=== PATIENT | female | born 1955 | race Caucasian/White ===

== ENCOUNTER → 2017-10-02 12:57 | Outpatient (CLI) | payer MEDICARE, MEDICAID, SELFPAY ==
--- NOTE | 2017-10-02 13:04 | US_ITS ---
US Arterial Ankle Brachial Ind Bilateral rest pain, bilateral claudication, hyperlipidemia and hypertension. Leg pain ORDERING PHYSICIAN: Alex Yeh MD PATIENT AGE: 62 years TECHNIQUE: Segmental pressures obtained of both right and left leg. These are compared to brachial blood pressure to yield index at each level sampled including summary JAIDEN. The data sheets from the procedure are available in PACS FINDINGS Rest study only performed today No prior studies available for comparison. Blood pressures reported are in millimeters mercury. RIGHT LEG JAIDEN = 1.0. Right TBI equals 0.8 Brachial BP: 152 Thigh BP: 172 Calf BP: 171 Ankle PT: 152 Ankle DP : 154 Digit =123 LEFT LEG JAIDEN = 1.1 Left TBI equals 0.8 Brachial BPD: 151 Thigh BP: 169 Calf BP: 172 Ankle PT:165 Ankle DP: 182 Digit = 121 Pulses and waveforms: Normal IMPRESSION: The ABIs as reported above are within normal limits. Waveforms and pulses are also unremarkable.
== END ==
PROVIDERS: Family Provider Emergency Medicine; PCP Emergency Medicine; Visit Provider Emergency Medicine
DX: R09.89 Other specified symptoms and signs involving the circulatory and respiratory systems (principal)
CPT/HCPCS: 93922

== ENCOUNTER 2017-10-22 16:27 | Emergency (ER) | payer MEDICARE, MEDICAID, SELFPAY ==
[2017-10-22 17:35] VITALS: BP 179/90; PULSE 76; RESP 18; TEMP 36.9; O2SAT 97; BMI 26.5
--- NOTE | 2017-10-22 18:16 | HMH.EDUTC ---
[facility] [place]ression: Influenza B, Muscle pain Disposition: Home, Self-Care Condition on Discharge: Good Instructions: DI for Influenza -- Adult Additional Instructions: * Too late to start tamiflu. Most effective when started within 48 hours of symptoms onset. * Lots of rest * Increase fluids, water, gatorade, powerade, pedialyte if infant/toddler/child * Monitor Temp. Tylenol every 4 hours as needed no more then 5 times a day or 4000mg in 24 hours and/or ibuprofen every 6 hours as needed no more then 3200mg in 24 hours (as long as your primary care doctor has told you that it is ok to take both) for fever/aches/pain. ER if fever no less than 101 despite tylenol and Ibuprofen * OTC cold/flu/sinus medication is ok but pick one. Do not take multiple different ones as they have similar ingredients and you can overdose on cold medication. * You (or your child) are contagious until no fever, aches, chills x 24 hours without medication for symptoms. Referrals: Alex Yeh MD [Primary Care Provider] - (Can see you in the office tomorrow. Tell them Dr. Yeh talked to you tonight and told you to come in. ) Time of Disposition: 20:48 Medical Decision Making Vital Signs: 10/22/17 17:35 Temperature 98.4 F Temperature Source Temporal Artery Scan Pulse Rate [Right Radial] 76 Respiratory Rate 18 Blood Pressure [Right Arm] 179/90 Blood Pressure Mean [Right Arm] 119 Blood Pressure Source [Right Arm] Automatic Cuff Blood Pressure Position [Right Arm] Sitting 02 Sat by Pulse Oximetry 97 Oxygen Delivery Method Room Air - Lab Data Lab results reviewed: Yes: I reviewed the patient's lab results. Lab Results 10/22/17 18:18: Influenza Type A Ag Negative, Influenza Type B Ag Positive A, Strep Scn Rapid Clinic Negative 10/22/17 18:35: WBC 2.6 L, RBC 4.17 L, Hgb 13.6, Hct 41.6, MCV 99.7 H, MCH 32.7 H, MCHC 32.8, RDW 15.9, Plt Count 146, MPV 8.3, Neut % (Auto) 52.5, Lymph % (Auto) 33.9, [place] % (Auto) 11.0 H, Eos % (Auto) 2.0, Baso % (Auto) 0.6, Neut # (Auto) 1.4 L, Lymph # (Auto) 0.9, [place] # (Auto) 0.3, Eos # (Auto) 0.1, Baso # (Auto) 0.0 10/22/17 18:35: Sodium 140, Potassium 4.2, Chloride 105, Carbon Dioxide 31, Anion Gap 8.2, BUN 12, Creatinine 0.89, Estimated Creat Clear 61, Estimated GFR 64, Est GFR ( Amer) 77, Glucose 104, Calcium 8.2 L, Total Bilirubin 0.3, AST 25, ALT 27, Alkaline Phosphatase 118 H, Total Creatine Kinase 45, Total Protein 7.4, Albumin 3.7, Globulin 3.7 H, Albumin/Globulin Ratio 1.0 L 10/22/17 18:35: Lactic Acid 0.7 Result diagrams: 10/22/17 18:35 10/22/17 18:35 Orders (Tests/Meds): ORDERS Category Date Time Status Strep Screen Confirmation Stat Micro 10/22/17 18:18 Received - Radiology Data #1 Image(s): Chest Image Reviewed: Yes I have reviewed radiologist's interpretation, Yes I reviewed the patient's radiology image w/the ED provider Preliminary Findings: Normal/NAD Rvwd w/ Dr. Smith, ER MD prior to reading radiologist's report - Physician Consults Physician Consulted: Dr. Yeh, PCP Time: 08:00 Reason -: Pt condition Comment/Response: Teri. Will come by once available. 0845: In clinic, seeing pt. Reviewed HPI, labs, cxr. Enc fluids, rest, tylenol, motrin. Can see her in office tomorrow. - Cristobal Inquiry Pt receiving controlled substance: No [facility] [place] - General Stated complaint: flu Time Seen by Provider: 10/22/17 18:16 Mode of Arrival: Family Vehicle Source of Information: Patient Limitations: No Limitations Description of Symptoms (Recalled from Triage Doc. by RN): PT C/O FLU SYMPTOMS AND SORE THROAT FOR A WEEK. HEENT Symptoms (Recalled from RN notes): Yes (FLU LIKE/ SORE THROAT) Resp Symptoms (Recalled from RN notes): Yes (FLU LIKE) Skin Symptoms (Recalled from RN notes): No MS Symptoms (Recalled from RN notes): No Functional Status (Recalled from RN notes): NA - History of Present Illness Provider Complaint: c/o I am afraid the flu
[2017-10-22 18:20] LABS: UTC Influenza A Antigen Negative (Negative); UTC Influenza B Antigen Positive (Negative); UTC Strep Screen (Rapid) Negative (Negative)
--- NOTE | 2017-10-22 18:21 | XR_ITS ---
XR chest 2V Ordering Physician: Katarzyna Chase Patient Age: 62 years: Female HISTORY: ITS.REASON: flu B pos, cough w/ SOA AP chest 01/17/2016 this is comparison. TECHNIQUE: PA and lateral chest COMPARISON :AP chest 01/17/2016 this is comparison. Short of breath FINDINGS Stable appearance the lungs with no active disease. N no pneumothorax no pleural effusion. Central markings upper normal. Could reflect mild bronchitis but nonspecific. Unimpressive and similar to old studies. No nothing definitely acute or no discrete change since December 2015. Heart, lynne and mediastinal structures satisfactory . IMPRESSION: No focal pneumonia. Nothing definitely acute.
--- NOTE | 2017-10-22 18:22 | ED_ITS ---
[facility] [place]: Influenza B, Muscle pain Disposition: Home, Self-Care Condition on Discharge: Good Instructions: DI for Influenza -- Adult Additional Instructions: * Too late to start tamiflu. Most effective when started within 48 hours of symptoms onset. * Lots of rest * Increase fluids, water, gatorade, powerade, pedialyte if infant/toddler/child * Monitor Temp. Tylenol every 4 hours as needed no more then 5 times a day or 4000mg in 24 hours and/or ibuprofen every 6 hours as needed no more then 3200mg in 24 hours (as long as your primary care doctor has told you that it is ok to take both) for fever/aches/pain. ER if fever no less than 101 despite tylenol and Ibuprofen * OTC cold/flu/sinus medication is ok but pick one. Do not take multiple different ones as they have similar ingredients and you can overdose on cold medication. * You (or your child) are contagious until no fever, aches, chills x 24 hours without medication for symptoms. Referrals: lAex Yeh MD [Primary Care Provider] - (Can see you in the office tomorrow. Tell them Dr. Yeh talked to you tonight and told you to come in. ) Time of Disposition: 20:48 Medical Decision Making Vital Signs: 10/22/17 17:35 Temperature 98.4 F Temperature Source Temporal Artery Scan Pulse Rate [Right Radial] 76 Respiratory Rate 18 Blood Pressure [Right Arm] 179/90 Blood Pressure Mean [Right Arm] 119 Blood Pressure Source [Right Arm] Automatic Cuff Blood Pressure Position [Right Arm] Sitting 02 Sat by Pulse Oximetry 97 Oxygen Delivery Method Room Air - Lab Data Lab results reviewed: Yes: I reviewed the patient's lab results. Lab Results 10/22/17 18:18: Influenza Type A Ag Negative, Influenza Type B Ag Positive A, Strep Scn Rapid Clinic Negative 10/22/17 18:35: WBC 2.6 L, RBC 4.17 L, Hgb 13.6, Hct 41.6, MCV 99.7 H, MCH 32.7 H, MCHC 32.8, RDW 15.9, Plt Count 146, MPV 8.3, Neut % (Auto) 52.5, Lymph % ( Auto) 33.9, [place] % (Auto) 11.0 H, Eos % (Auto) 2.0, Baso % (Auto) 0.6, Neut # ( Auto) 1.4 L, Lymph # (Auto) 0.9, [place] # (Auto) 0.3, Eos # (Auto) 0.1, Baso # ( Auto) 0.0 10/22/17 18:35: Sodium 140, Potassium 4.2, Chloride 105, Carbon Dioxide 31, Anion Gap 8.2, BUN 12, Creatinine 0.89, Estimated Creat Clear 61, Estimated GFR 64, Est GFR ( Amer) 77, Glucose 104, Calcium 8.2 L, Total Bilirubin 0.3, AST 25, ALT 27, Alkaline Phosphatase 118 H, Total Creatine Kinase 45, Total Protein 7.4, Albumin 3.7, Globulin 3.7 H, Albumin/Globulin Ratio 1.0 L 10/22/17 18:35: Lactic Acid 0.7 Result diagrams: 10/22/17 18:35 10/22/17 18:35 Orders (Tests/Meds): ORDERS Category Date Time Status Strep Screen Confirmation Stat Micro 10/22/17 18:18 Received - Radiology Data #1 Image(s): Chest Image Reviewed: Yes I have reviewed radiologist's interpretation, Yes I reviewed the patient's radiology image w/the ED provider Preliminary Findings: Normal/NAD Rvwd w/ Dr. Smith, ER MD prior to reading radiologist's report - Physician Consults Physician Consulted: Dr. Yeh, PCP Time: 08:00 Reason -: Pt condition Comment/Response: Teri. Will come by once available. 0845: In clinic, seeing pt. Reviewed HPI, labs, cxr. Enc fluids, rest, tylenol, motrin. Can see her in office tomorrow. - Cristobal Inquiry Pt receiving controlled substance: No [facility] [place] General Stated complaint: flu Time Seen by Provider: 10/22/17 18:16 Mode of Arr
[2017-10-22 18:49] LABS: Basophils % 0.6 % (0.1-2.0); Eosinophils # 0.1 K/mm3 (0.0-0.4); Hematocrit 41.6 % (37.0-47.0); Hemoglobin 13.6 g/dL (12.2-16.2); Lymphocytes # 0.9 K/mm3 (0.7-4.5); Lymphocytes % 33.9 K/mm3 (10-50); Mean Corpuscular HGB Conc 32.8 g/dL (31.8-35.4); Mean Corpuscular Hemoglobin 32.7 pg (27.0-31.2); Mean Corpuscular Volume 99.7 fl (81-99); Mean Platelet Volume 8.3 fl (7.4-10.4); Monocytes # 0.3 K/mm3 (0.1-1.0); Neutrophils # 1.4 K/mm3 (1.8-7.8); Neutrophils % 52.5 % (37.0-80.0); Platelet Count 146 K/mm3 (142-424); Red Blood Count 4.17 M/mm3 (4.20-5.40); Red Cell Distribution Width 15.9 % (11.5-17.5); White Blood Count 2.6 K/mm3 (4.8-10.8)
[2017-10-22 19:01] LABS: Alanine Aminotransferase 27 U/L (12-78); Albumin Level 3.7 gm/dL (3.4-5.0); Alkaline Phosphatase 118 U/L (46-116); Anion Gap 8.2 mEq/L (5-15); Aspartate Amino Transferase 25 U/L (15-37); Bilirubin,Total 0.3 mg/dL (0.2-1.0); Blood Urea Nitrogen 12 mg/dL (7-18); Calcium 8.2 mg/dL (8.5-10.1); Carbon Dioxide 31 mmol/L (21.0-32.0); Chloride 105 mmol/L (98-107); Creatine Kinase 45 U/L (26-192); Creatinine Clearance Estimated 61 mL/min (0-300); Creatinine,Serum 0.89 mg/dL (0.55-1.02); Estimated Glomerular Filt Rate 64 ml/min (>60); GFR (African American) 77 ML/MIN (>60); Globulin 3.7 gm/dl (1.3-3.2); Glucose 104 mg/dL (74-106); Potassium 4.2 mmoL/L (3.5-5.1); Sodium 140 mmol/L (136-145); Total Protein,Serum 7.4 gm/dL (6.4-8.2)
[2017-10-22 19:04] LABS: Lactic Acid 0.7 mmol/L (0.4-2.0)
[2017-10-22 20:49] VITALS: BP 130/78; PULSE 76; RESP 20; TEMP 36.9; O2SAT 99
== END 2017-10-22 20:51 | disposition home or self-care (01) ==
PROVIDERS: Emergency Provider Nurse Practitioner Family; Family Provider Emergency Medicine; PCP Emergency Medicine
DX: J10.1 Influenza due to other identified influenza virus with other respiratory manifestations (principal); M79.1 Myalgia; I25.10 Atherosclerotic heart disease of native coronary artery without angina pectoris; G25.81 Restless legs syndrome; I10 Essential (primary) hypertension; F41.9 Anxiety disorder, unspecified; F32.9 Major depressive disorder, single episode, unspecified; F17.210 Nicotine dependence, cigarettes, uncomplicated; Z79.82 Long term (current) use of aspirin; Z79.899 Other long term (current) drug therapy
CPT/HCPCS: 36415; 71046; 80053; 82550; 83605; 85025; 87804; 87880; 99202

== ENCOUNTER → 2018-01-08 10:00 | Outpatient (REF) | payer MEDICARE, MEDICAID, SELFPAY ==
[2018-01-08 14:03] LABS: Anion Gap 10.8 mEq/L (5-15); Blood Urea Nitrogen 22 mg/dL (7-18); Carbon Dioxide 30 mmol/L (21.0-32.0); Chloride 106 mmol/L (98-107); Chol/HDL Ratio 5.4 (1-3.5); Cholesterol 174 mg/dL (140-200); Creatinine,Serum 0.87 mg/dL (0.55-1.02); Estimated Glomerular Filt Rate 66 ml/min (>60); Free T4 (Free Thyroxine) 1.22 ng/dl (0.76-1.46); GFR (African American) 79 ML/MIN (>60); Glucose 126 mg/dL (74-106); HDL Cholesterol 32 mg/dL (29-89); LDL Cholesterol 119 mg/dL (0-130); Potassium 3.8 mmoL/L (3.5-5.1); Sodium 143 mmol/L (136-145); Thyroid Stimulating Hormone 3.52 uIU/ml (0.358-3.740); Triglycerides 115 mg/dL (30-200); VLDL Cholesterol 23 mg/dL (0-40)
[2018-01-08 14:05] LABS: Basophils % 0.3 % (0.1-2.0); Eosinophils # 0.1 K/mm3 (0.0-0.4); Eosinophils % 2.7 % (0.1-12.0); Hematocrit 39.2 % (37.0-47.0); Hemoglobin 12.9 g/dL (12.2-16.2); Lymphocytes # 1.6 K/mm3 (0.7-4.5); Lymphocytes % 34.1 K/mm3 (10-50); Mean Corpuscular HGB Conc 32.9 g/dL (31.8-35.4); Mean Corpuscular Hemoglobin 32.3 pg (27.0-31.2); Mean Corpuscular Volume 98.3 fl (81-99); Mean Platelet Volume 9.1 fl (7.4-10.4); Monocytes # 0.4 K/mm3 (0.1-1.0); Monocytes % 9.2 % (1.7-9.3); Neutrophils # 2.5 K/mm3 (1.8-7.8); Neutrophils % 53.7 % (37.0-80.0); Platelet Count 230 K/mm3 (142-424); Red Blood Count 3.99 M/mm3 (4.20-5.40); Red Cell Distribution Width 16.8 % (11.5-17.5); White Blood Count 4.7 K/mm3 (4.8-10.8)
[2018-01-10 06:33] LABS: Vitamin B12 <150 pg/mL (232-1245)
== END ==
LOC: LAB 10:00
PROVIDERS: Visit Provider Emergency Medicine
DX: M79.1 Myalgia (principal); R53.83 Other fatigue; I10 Essential (primary) hypertension
CPT/HCPCS: 80048; 80061; 82607; 84439; 84443; 85025

== ENCOUNTER → 2018-01-31 10:00 | Outpatient (CLI) | payer MEDICARE, MEDICAID, SELFPAY ==
[2018-01-31 10:32] VITALS: PULSE 64
== END ==
PROVIDERS: Family Provider Emergency Medicine; PCP Emergency Medicine; Visit Provider Emergency Medicine
DX: R06.02 Shortness of breath (principal)
CPT/HCPCS: 94060; 94640

== ENCOUNTER → 2018-02-25 11:42 | Outpatient (REF) | payer MEDICARE, MEDICAID, SELFPAY | LOC: LAB 11:42 | PROVIDERS: Visit Provider Emergency Medicine | DX: R05 Cough (principal) | CPT/HCPCS: 87070; 87205 ==

== ENCOUNTER 2018-04-22 23:40 | Observation (INO) ==
[2018-04-23 00:20] LABS: Basophils % 0.6 % (0.1-2.0); Eosinophils # 0.1 K/mm3 (0.0-0.4); Eosinophils % 2.3 % (0.1-12.0); Hematocrit 41.5 % (37.0-47.0); Hemoglobin 13.5 g/dL (12.2-16.2); Lymphocytes # 2.1 K/mm3 (0.7-4.5); Lymphocytes % 35.5 K/mm3 (10-50); Mean Corpuscular HGB Conc 32.6 g/dL (31.8-35.4); Mean Corpuscular Hemoglobin 28.1 pg (27.0-31.2); Mean Corpuscular Volume 86.1 fl (81-99); Mean Platelet Volume 8.6 fl (7.4-10.4); Monocytes # 0.4 K/mm3 (0.1-1.0); Monocytes % 6.9 % (1.7-9.3); Neutrophils # 3.2 K/mm3 (1.8-7.8); Neutrophils % 54.7 % (37.0-80.0); Platelet Count 206 K/mm3 (142-424); Red Blood Count 4.82 M/mm3 (4.20-5.40); Red Cell Distribution Width 15.7 % (11.5-17.5); White Blood Count 5.8 K/mm3 (4.8-10.8)
--- NOTE | 2018-04-23 00:39 | Emergency Department Note ---
ED Disposition Clinical Impression: Tobacco use Chest pain Qualifiers: Chest pain type: precordial pain Qualified Code(s): R07.2 - Precordial pain Hypertension Qualifiers: Hypertension type: essential hypertension Qualified Code(s): I10 - Essential ( primary) hypertension Disposition: Admitted as Observation Condition on Discharge: Good - Critical Care Critical Care Time: No Attestation: On 04/22/18, the high probability of a clinically significant, sudden or life threatening deterioration of the following system(s) required my full and direct attention, intervention and personal management. The time I documented below is in addition to time spent performing reported procedures but includes the following listed in this critical care notation. Medical Decision Making - Medical Records Medical records reviewed: Yes: I reviewed the patient's medical records. - Cristobal Inquiry Pt receiving controlled substance: No Vital Signs: 04/22/18 23:40 Temperature 98.5 F Temperature Source Oral Pulse Rate [Right Brachial] 77 Respiratory Rate 16 Blood Pressure [Right Arm] 181/97 Blood Pressure Mean [Right Arm] 125 02 Sat by Pulse Oximetry 100 - Lab Data Lab results reviewed: Yes: I reviewed the patient's lab results. Lab Results 04/22/18 23:45: WBC 5.8, RBC 4.82, Hgb 13.5, Hct 41.5, MCV 86.1, MCH 28.1, MCHC 32.6, RDW 15.7, Plt Count 206, MPV 8.6, Neut % (Auto) 54.7, Lymph % (Auto) 35.5 , [place] % (Auto) 6.9, Eos % (Auto) 2.3, Baso % (Auto) 0.6, Neut # (Auto) 3.2, Lymph # (Auto) 2.1, [place] # (Auto) 0.4, Eos # (Auto) 0.1, Baso # (Auto) 0.0 Result diagrams: 04/22/18 23:45 Orders (Tests/Meds): ED MEDICATIONS Discontinued Medications Generic Name Dose Route Start Last Admin Trade Name Freq PRN Reason Stop Dose Admin Aspirin 243 mg 04/22/18 23:49 04/22/18 23:53 Aspirin 81mg Chewable Tablet PO 04/22/18 23:50 243 mg ONCE ONE Administration Nitroglycerin 1 gm 04/22/18 23:49 04/22/18 23:54 Nitroglycerin 1 Inch Oint Udp TD 04/22/18 23:50 1 gm ONCE ONE Administration ORDERS Category Date Time Status XR chest 2V Stat Exams 04/23/18 12:02 Taken Basic Metabolic Panel Stat Lab 04/22/18 23:45 Received Troponin I Stat Lab 04/22/18 23:45 Received ECG Request by /Hermelinda Stat Y 04/22/18 23:49 Ordered - Radiology Data #1 Image(s): Chest Image Reviewed: Yes I reviewed the patient's radiology image Preliminary Findings: Normal/NAD - ECG Data Tracing #1 I reviewed this ECG and interpreted as documented below: Normal Sinus Rhythm: Yes Ischemic changes: non-specific ST-T wave changes Chest Pain HPI - General Chief Complaint: Chest Pain Stated Complaint: chest pain Time Seen by Provider: 04/23/18 00:00 Mode of Arrival: Ambulatory Source of Information: Patient, Relative, Medical Record Limitations: No Limitations Description of Symptoms (Recalled from ER Triage Doc. by RN): Chest pain that came on yesterday, started back today, reports it feels like someone is sitting on her chest, and reports some "skipping" of her heart. Reports left arm pain, and left shoulder pain associated. - History of Present Illness HPI narrative: pt over the last few weeks has had chest pain - pressure like with sob and rad to neck with elevated bp MD complaint: chest pain indicative of cardiac Onset (ago): day(s) Duration: intermittent Activity at onset: during rest Pain location: left chest Severity: moderate Quality: heaviness Pain radiation: neck Associated symptoms: nausea Risk Factors for CAD: Hypertension, Hypercholesterolemia, Family Hx of CAD, Smoking Treatments prior to or on arrival for Cardiac Chest Pain: none - LOGAN Score Non-Stemi Age of patient: Less than 65 yrs Number of risk factors for CAD: Presence of 3 or more Prior coronary artery stenosis(seen in coronary angiography): Less than 50% ST-Segment deviation on ECG (more than 1 min): Absent Prior aspirin intake: ASA intake in the last 7 days Severe anginal chest pain: Two or more episodes in last 24 hours Elevated cardiac markers(CK-MB or troponin): Absent Non-Stemi Risk Score: 3 - Related Data On Oral Contraceptives: No Home Medications Medication Instructions Recorded Confirmed aspirin 81 mg tablet,delayed 81 mg PO DAILY 09/21/17 04/22/18 release Escitalopram Oxalate 10 mg PO DAILY 04/22/18 04/22/18 Isosorbide Mononitrate [Imdur 30mg 30 mg PO DAILY 04/22/18 04/22/18 ER tablet] diazePAM [Valium] 2 mg PO BID 04/22/18 04/22/18 Previous Rx's Medication Instructions Recorded albuterol sulfate 90 mcg/actuation 2 puff INHALATION Q4-6H PRN #1 each 02/06/18 breath activated powder inhaler carvedilol 3.125 mg tablet 3.125 mg PO BID 90 Days #180 tab 03/05/18 Allergies Allergy/AdvReac Type Severity Reaction Status Date / Time No Known Allergies Allergy Verified 04/22/18 23:46 [facility] History I have reviewed the patient's past medical history: Yes Medical History: Reports:: Anxiety, Coronary Artery Disease, Depression, Heart Murmur, Hypertension Denies:: Cancer, Diabetes Mellitus Type 1, Diabetes Mellitus Type 2, MRSA Other Medical History: Reports: Other Comment: Vitamin D deficiency, Vitamin B12 deficiency, Essential Tremor, RLS Other Surgeries: Yes: No Previous Surgery Amputation: No Fractures: No Comment: Endometriosis scraped - Social History Smoking Status: Current every day smoker Tobacco Type: cigarettes # Packs/Day (cigarettes): 1 Alcohol Intake: never Substance Use Type: denies use - Psychiatric History Expresses thoughts of harming self/others: None Suicide Plan Description: No Plan Pschychiatric History:: Reports:: Anxiety, Depression Family Hx:: Coronary Artery Disease, Stroke ROS Obtained: Yes All systems reviewed & no additional complaints - Constitutional Constitutional: Denies fever(s) - Eyes Eyes: Denies change in vision - ENT Ears, Nose, Mouth, and Throat: Denies otalgia, Denies sore throat - Cardiovascular Cardiovascular: Reports as per HPI, Reports chest pain, Reports chest pain at rest, Reports dyspnea, Reports radiating jaw, neck or arm pain - Respiratory Respiratory: No cough - Gastrointestinal Gastrointestingal: Denies: abdominal pain - Genitourinary Female Genitourinary: Denies hematuria - Musculoskeletal Musculoskeletal: Denies joint pain, Denies joint swelling - Integumentary/Breasts Skin/Breast: Denies rash - Neurologic Neurologic: Denies seizure-like activity Physical Exam - General General appearance: in no apparent distress - Head Head exam: normocephalic - Eye Eye exam: Present: PERRL, EOMI. Absent: scleral icterus - ENT ENT exam: Present: mucous membranes dry - Neck Neck exam: Present: trachea midline - Respiratory Respiratory exam: Present: normal lung sounds bilaterally. Absent: respiratory distress - Cardiovascular Cardiovascular exam: Present: regular rate, systolic murmur, +S4 - Abdominal Exam Abdominal exam: Present: soft - Extremities Exam Extremities exam: Absent: calf tenderness - Neurological Exam Neurological exam: Present: alert, oriented X3, CN II-XII intact - Psychiatric Psychiatric exam: Present: normal affect - Skin Skin exam: Absent: rash
[2018-04-23 00:40] LABS: Anion Gap 10.6 mEq/L (5-15); Blood Urea Nitrogen 13 mg/dL (7-18); Carbon Dioxide 27 mmol/L (21.0-32.0); Chloride 108 mmol/L (98-107); Glucose 95 mg/dL (74-106); Potassium 3.6 mmoL/L (3.5-5.1); Sodium 142 mmol/L (136-145)
[2018-04-23 06:46] LABS: Basophils % 0.6 % (0.1-2.0); Eosinophils # 0.1 K/mm3 (0.0-0.4); Eosinophils % 2.7 % (0.1-12.0); Hematocrit 36.8 % (37.0-47.0); Lymphocytes # 1.8 K/mm3 (0.7-4.5); Lymphocytes % 40.8 K/mm3 (10-50); Mean Corpuscular HGB Conc 32.3 g/dL (31.8-35.4); Mean Corpuscular Hemoglobin 28.4 pg (27.0-31.2); Mean Platelet Volume 8.7 fl (7.4-10.4); Monocytes # 0.3 K/mm3 (0.1-1.0); Monocytes % 7.3 % (1.7-9.3); Neutrophils # 2.1 K/mm3 (1.8-7.8); Neutrophils % 48.6 % (37.0-80.0); Platelet Count 191 K/mm3 (142-424); Red Blood Count 4.19 M/mm3 (4.20-5.40); Red Cell Distribution Width 15.7 % (11.5-17.5); White Blood Count 4.3 K/mm3 (4.8-10.8)
[2018-04-23 07:01] LABS: Anion Gap 9.5 mEq/L (5-15); Blood Urea Nitrogen 13 mg/dL (7-18); Calcium 8.6 mg/dL (8.5-10.1); Carbon Dioxide 29 mmol/L (21.0-32.0); Chloride 110 mmol/L (98-107); Chol/HDL Ratio 4.7 (1-3.5); Cholesterol 131 mg/dL (140-200); Glucose 101 mg/dL (74-106); HDL Cholesterol 28 mg/dL (29-89); LDL Cholesterol 77 mg/dL (0-130); Potassium 3.5 mmoL/L (3.5-5.1); Sodium 145 mmol/L (136-145); Triglycerides 129 mg/dL (30-200); VLDL Cholesterol 26 mg/dL (0-40)
--- NOTE | 2018-04-23 07:34 | Pharmacy Consult Notes ---
[facility] Pharmacy VTE Monitoring - Patient Demographics Admission date: 04/23/18 Report Date: 04/23/18 Time: 07:34 Allergies/Adverse Reactions: Patient Allergies No Known Allergies Allergy (Verified 04/22/18 23:46) Height: 1.6 m Weight: 70.1 kg Patient Problems: Current Active Problems (Last Updated 10/24/17 @ 09:11 by Adelita Gonzalez RN) Chest pain (Acute) Tobacco use (Acute) Hypertension (Acute) - VTE Risk Labs: VTE Related Lab Results Hgb 13.5 g/dL (12.2-16.2) 04/22/18 23:45 Hct 36.8 % (37.0-47.0) L 04/23/18 06:09 Plt Count 191 K/mm3 (142-424) 04/23/18 06:09 BUN 13 mg/dL (7-18) 04/23/18 06:09 Creatinine 0.99 mg/dL (0.55-1.02) 04/23/18 06:09 Estimated Creat Clear 63 mL/min (0-300) 04/23/18 06:09 VTE Score: 3 VTE Risk Level: Low Risk - Prophylaxis VTE Prophylaxis Ordered?: Yes Types of VTE Prophylaxis: TEDS Knee High Location of Applied Device: Bilateral Lower Extremeties - VTE Diagnosis Confirmed Treatment or plan recommended: Continue Current Treatment
[2018-04-23 07:55] VITALS: BP 135/70
--- NOTE | 2018-04-23 08:12 | Consult Report ---
History of Present Illness Consult date: 04/23/18 Requesting physician: Alex Yeh Consult reason: chest pain Chief complaint: Palpitations, chest pain Additional Medical History:: 1. Tobacco use, 1 pack per day, started age 12 2. Hypertension 3. Coronary artery disease per patient A. Patient relates workup in [place] approximately 5 years ago with "a 60% blockage" but without recent catheterization. B. Lexiscan Myoview, 2016, no ischemia with normal LVEF. 4. Anxiety 5. Questionable history of Parkinson's disease 6. Carotid artery stenosis A. Carotid ultrasound, 2016, less than 20% ICA stenosis bilaterally. History of present illness: 62-year-old white female with several weeks history of palpitations with associated chest pressure and discomfort sensation. Symptoms may occur with activity or with rest. She denies any syncope or near syncopal symptoms. Symptoms may last for couple of hours at a time. She relates them to being under a lot of stress and anxiety recently. Patient relates dealing with mold in her apartment which she believes is causing a lot of her symptoms. 2 days ago she notes her blood pressure at 210/120 mmHg per home machine with associated chest discomfort symptoms. When symptoms recurred again last evening with elevated blood pressure again she decided to come to the emergency department for further evaluation. Blood pressure noted to be near 200/100 in the emergency department. Patient was started on nitroglycerin paste without immediate relief more of a slow gradual improvement in symptoms overnight. Cardiac enzymes have returned normal 4. EKG is sinus without acute ST segment changes. Cardiology consulted for evaluation and recommendations. Telemetry has revealed no arrhythmias. [facility] History Medical History: Reports:: Anxiety, Coronary Artery Disease, Depression, Heart Murmur, Hypertension Denies:: Cancer, Diabetes Mellitus Type 1, Diabetes Mellitus Type 2, MRSA Other Medical History: Reports: Other Other Surgeries: Yes: No Previous Surgery Amputation: No Fractures: No - *Social History Educational Level: Completed GED/General Educational Development Smoking Status: Current every day smoker Tobacco Type: cigarettes # Packs/Day (cigarettes): 1 Alcohol Intake: never Substance Use Type: denies use Occupational Status: disabled Housing: apartment - Psychiatric History Expresses thoughts of harming self/others: None Suicide Plan Description: No Plan Pschychiatric History:: Reports:: Anxiety, Depression *Family Hx:: Cancer, Coronary Artery Disease, Diabetes, Hyperlipidemia, Hypertension, Kidney Disease, Stroke Meds Home Medications Medication Instructions Recorded Confirmed Type aspirin 81 mg tablet,delayed 81 mg PO DAILY 09/21/17 04/22/18 History release Escitalopram Oxalate 10 mg PO DAILY 04/22/18 04/22/18 History Isosorbide Mononitrate [Imdur 30mg 30 mg PO DAILY 04/22/18 04/22/18 History ER tablet] diazePAM [Valium] 2 mg PO BID 04/22/18 04/22/18 History Albuterol Sulfate [Albuterol HFA 2 puff INHALATION BID 04/23/18 04/23/18 History Inhaler] Fluticasone Furoate [Arnuity 2 puffs INHALATION DAILY 04/23/18 04/23/18 History Ellipta] Gabapentin [Gabapentin 300mg Cap] 300 mg PO DAILY 04/23/18 04/23/18 History Allergies Allergy/AdvReac Type Severity Reaction Status Date / Time No Known Allergies Allergy Verified 04/22/18 23:46 Review of Systems - *Cardiovascular Reports chest pain, Reports shortness of breath with activity - *Respiratory Reports shortness of breath with activity - *Gastrointestinal Denies abdominal pain - *Genitourinary Denies blood in urine - *Musculoskeletal Denies joint pain - *Neurologic Denies seizure-like activity Exam Vital signs and Labs for Last 24 Hours: Temp Pulse Resp BP Pulse Ox 98.8 F 55 L 16 135/70 94 L 04/23/18 07:54 04/23/18 07:54 04/23/18 07:54 04/23/18 07:54 04/23/18 07:54 Laboratory Results - last 24 hr 04/22/18 23:45: WBC 5.8, RBC 4.82, Hgb 13.5, Hct 41.5, MCV 86.1, MCH 28.1, MCHC 32.6, RDW 15.7, Plt Count 206, MPV 8.6, Neut % (Auto) 54.7, Lymph % (Auto) 35.5, [place] % (Auto) 6.9, Eos % (Auto) 2.3, Baso % (Auto) 0.6, Neut # (Auto) 3.2, Lymph # (Auto) 2.1, [place] # (Auto) 0.4, Eos # (Auto) 0.1, Baso # (Auto) 0.0 04/22/18 23:45: Sodium 142, Potassium 3.6, Chloride 108 H, Carbon Dioxide 27, Anion Gap 10.6, BUN 13, Creatinine 0.94, Estimated Creat Clear 66, Estimated GFR 60, Est GFR ( Amer) 73, Glucose 95, Calcium 9.0, Troponin I < 0.02 04/23/18 02:00: Troponin I < 0.02 04/23/18 04:15: Troponin I < 0.02 04/23/18 06:09: WBC 4.3 L D, RBC 4.19 L, Hgb 12.0 L D, Hct 36.8 L, MCV 88.0, MCH 28.4, MCHC 32.3, RDW 15.7, Plt Count 191, MPV 8.7, Neut % (Auto) 48.6, Lymph % (Auto) 40.8, [place] % (Auto) 7.3, Eos % (Auto) 2.7, Baso % (Auto) 0.6, Neut # (Auto) 2.1, Lymph # (Auto) 1.8, [place] # (Auto) 0.3, Eos # (Auto) 0.1, Baso # (Auto) 0.0 04/23/18 06:09: Sodium 145, Potassium 3.5, Chloride 110 H, Carbon Dioxide 29, Anion Gap 9.5, BUN 13, Creatinine 0.99, Estimated Creat Clear 63, Estimated GFR 56 L, Est GFR ( Amer) 68, Glucose 101, Calcium 8.6, Troponin I < 0.02, Triglycerides 129, Cholesterol 131 L, LDL Cholesterol 77, VLDL Cholesterol 26, HDL Cholesterol 28 L, Cholesterol/HDL Ratio 4.7 H I & O for Last 24 hours: Intake & Output 04/20/18 04/21/18 04/22/18 04/23/18 11:59 11:59 11:59 11:59 Intake Total / 203 Balance 203 Weight 154 lb 8.705 oz - *Routine Neck Exam Absent: JVD, carotid bruit - *Routine Respiratory Exam Present: CTA bilaterally - *Routine Cardiovascular Exam Present: RRR, murmur. Absent: gallop, rubs - *Routine Abdominal Exam Present: soft. Absent: tenderness - *Routine Extremities Exam Absent: edema - *Routine Neurological Exam Present: alert, oriented X3, moving all extremities Assessment and Plan (1) Chest pain Current visit: Yes Status: Acute Qualifiers: Chest pain type: precordial pain Qualified Code(s): R07.2 - Precordial pain Category: Medical Code(s): R07.9 - Chest pain, unspecified (2) Intermittent palpitations Current visit: Yes Status: Acute Category: Medical Code(s): R00.2 - Palpitations (3) Hypertension Current visit: Yes Status: Acute Qualifiers: Hypertension type: essential hypertension Qualified Code(s): I10 - Essential (primary) hypertension Category: Medical Code(s): I10 - Essential (primary) hypertension (4) Tobacco use Current visit: Yes Status: Acute Category: Social Hx Code(s): Z72.0 - Tobacco use - Assessment and plan all Dx Assessment and Plan for all problems:: Intermittent palpitations, chest heaviness and elevated BP with no relief with nitroglycerin, normal troponins 4, EKG without acute changes and preliminary echocardiogram showing normal left ventricular size and function with mild MR and TR, would focus on maintaining control of patient's blood pressure. Coreg 3.125 mg daily has been added with significant improvement in blood pressure at this time. Continue aspirin 81 mg daily along with isosorbide 30 mg daily. Consider second antianginal, if needed, in the form of Norvasc. Patient could be discharged home from a cardiology standpoint, for further evaluation and follow-up as an outpatient within the next 1-2 weeks.
--- NOTE | 2018-04-23 08:55 | H&P/Discharge Summary ---
General - General Admission date:: 04/23/18 Discharge date: 04/23/18 *Admission Date: 04/23/18 *Chief complaint: chest pain *History of present illness: this wf presented to ed with chest pain with hx of tob use and has htn - she was admitted for serial enz and card eval-pt reports being compliant with meds - est pain that came on yesterday, started back today, reports it feels like someone is sitting on her chest, and reports some "skipping" of her heart. Reports left arm pain, and left shoulder pain associated. - History of Present Illness HPI narrative: pt over the last few weeks has had chest pain - pressure like with sob and rad to neck with elevated bp [facility] History I have reviewed the patient's past medical history: Yes Medical History: Reports:: Anxiety, Coronary Artery Disease, Depression, Heart Murmur, Hypertension Denies:: Cancer, Diabetes Mellitus Type 1, Diabetes Mellitus Type 2, MRSA Other Medical History: Reports: Other Other Surgeries: Yes: No Previous Surgery Amputation: No Fractures: No - *Social History Educational Level: Completed GED/General Educational Development Smoking Status: Current every day smoker Tobacco Type: cigarettes # Packs/Day (cigarettes): 1 Alcohol Intake: never Substance Use Type: denies use Occupational Status: disabled Housing: apartment - Psychiatric History Expresses thoughts of harming self/others: None Suicide Plan Description: No Plan Pschychiatric History:: Reports:: Anxiety, Depression *Family Hx:: Cancer, Coronary Artery Disease, Diabetes, Hyperlipidemia, Hypertension, Kidney Disease, Stroke Review of Systems - Review of Systems Review of systems:: pertinent systems reviewed and negative unless documented below - Constitutional Denies headache(s) - Eyes Denies change in vision - ENT Denies sore throat - *Cardiovascular Reports chest pain, Reports shortness of breath - *Respiratory Denies cough - *Gastrointestinal Denies abdominal pain - *Genitourinary Denies blood in urine - *Musculoskeletal Denies joint pain - Integumentary/Breasts Denies rash - *Neurologic Denies seizure-like activity - Psychiatric Reports anxiety Exam Vital signs and Labs for Last 24 Hours: Temp Pulse Resp BP Pulse Ox 98.8 F 55 L 16 135/70 94 L 04/23/18 07:54 04/23/18 07:54 04/23/18 07:54 04/23/18 07:54 04/23/18 07:54 Laboratory Results - last 24 hr 04/22/18 23:45: WBC 5.8, RBC 4.82, Hgb 13.5, Hct 41.5, MCV 86.1, MCH 28.1, MCHC 32.6, RDW 15.7, Plt Count 206, MPV 8.6, Neut % (Auto) 54.7, Lymph % (Auto) 35.5 , [place] % (Auto) 6.9, Eos % (Auto) 2.3, Baso % (Auto) 0.6, Neut # (Auto) 3.2, Lymph # (Auto) 2.1, [place] # (Auto) 0.4, Eos # (Auto) 0.1, Baso # (Auto) 0.0 04/22/18 23:45: Sodium 142, Potassium 3.6, Chloride 108 H, Carbon Dioxide 27, Anion Gap 10.6, BUN 13, Creatinine 0.94, Estimated Creat Clear 66, Estimated GFR 60, Est GFR ( Amer) 73, Glucose 95, Calcium 9.0, Troponin I < 0.02 04/23/18 02:00: Troponin I < 0.02 04/23/18 04:15: Troponin I < 0.02 04/23/18 06:09: WBC 4.3 L D, RBC 4.19 L, Hgb 12.0 L D, Hct 36.8 L, MCV 88.0, MCH 28.4, MCHC 32.3, RDW 15.7, Plt Count 191, MPV 8.7, Neut % (Auto) 48.6, Lymph % (Auto) 40.8, [place] % (Auto) 7.3, Eos % (Auto) 2.7, Baso % (Auto) 0.6, Neut # (Auto) 2.1, Lymph # (Auto) 1.8, [place] # (Auto) 0.3, Eos # (Auto) 0.1, Baso # (Auto) 0.0 04/23/18 06:09: Sodium 145, Potassium 3.5, Chloride 110 H, Carbon Dioxide 29, Anion Gap 9.5, BUN 13, Creatinine 0.99, Estimated Creat Clear 63, Estimated GFR 56 L, Est GFR ( Amer) 68, Glucose 101, Calcium 8.6, Troponin I < 0.02, Triglycerides 129, Cholesterol 131 L, LDL Cholesterol 77, VLDL Cholesterol 26, HDL Cholesterol 28 L, Cholesterol/HDL Ratio 4.7 H I & O for Last 24 hours: Intake & Output 04/20/18 04/21/18 04/22/18 04/23/18 11:59 11:59 11:59 11:59 Intake Total 203 / 203 Balance 203 / 203 Weight 154 lb 8.705 oz - Constitutional no acute distress - *Routine HEENT Exam Head: Present: normocephalic Eye: Present: EOMI, PERRL ENT: Present: mucous membranes dry - *Routine Neck Exam Present: supple. Absent: JVD - *Routine Respiratory Exam Present: CTA bilaterally - *Routine Cardiovascular Exam Present: RRR, murmur - *Routine Abdominal Exam Present: soft - *Routine Extremities Exam Absent: calf tenderness - *Routine Skin Exam Present: intact - *Routine Neurological Exam Present: alert, oriented X3, CN II-XII intact - Routine Psychiatric Exam Present: normal affect Hospital Course Hospital Course: pt did well in hospital with dec pain and serial enz ok - she was seen by card- Tobacco use, 1 pack per day, started age 12 2. Hypertension 3. Coronary artery disease per patient A. Patient relates workup in [place] approximately 5 years ago with "a 60% blockage" but without recent catheterization. B. Lexiscan Myoview, 2016, no ischemia with normal LVEF. 4. Anxiety 5. Questionable history of Parkinson's disease 6. Carotid artery stenosis A. Carotid ultrasound, 2016, less than 20% ICA stenosis bilaterally. History of present illness: 62-year-old white female with several weeks history of palpitations with associated chest pressure and discomfort sensation. Symptoms may occur with activity or with rest. She denies any syncope or near syncopal symptoms. Symptoms may last for couple of hours at a time. She relates them to being under a lot of stress and anxiety recently. Patient relates dealing with mold in her apartment which she believes is causing a lot of her symptoms. 2 days ago she notes her blood pressure at 210/120 mmHg per home machine with associated chest discomfort symptoms. When symptoms recurred again last evening with elevated blood pressure again she decided to come to the emergency department for further evaluation. Blood pressure noted to be near 200/100 in the emergency department. Patient was started on nitroglycerin paste without immediate relief more of a slow gradual improvement in symptoms overnight. Cardiac enzymes have returned normal 4. EKG is sinus without acute ST segment changes. Cardiology consulted for evaluation and recommendations. Telemetry has revealed no arrhythmias. ntermittent palpitations, chest heaviness and elevated BP with no relief with nitroglycerin, normal troponins 4, EKG without acute changes and preliminary echocardiogram showing normal left ventricular size and function with mild MR and TR, would focus on maintaining control of patient's blood pressure. Coreg 3.125 mg daily has been added with significant improvement in blood pressure at this time. Continue aspirin 81 mg daily along with isosorbide 30 mg daily. Consider second antianginal, if needed, in the form of Norvasc. Patient could be discharged home from a cardiology standpoint, for further evaluation and follow-up as an outpatient within the next 1-2 weeks. we discussed tob cessation and compliance with meds and will follow with card as op Results Labs on day of discharge: Labs from last 24 hours 04/23/18 04/23/18 04/23/18 06:09 06:09 04:15 WBC 4.3 L D RBC 4.19 L Hgb 12.0 L D Hct 36.8 L MCV 88.0 MCH 28.4 MCHC 32.3 RDW 15.7 Plt Count 191 MPV 8.7 Neut % (Auto) 48.6 Lymph % (Auto) 40.8 [place] % (Auto) 7.3 Eos % (Auto) 2.7 Baso % (Auto) 0.6 Neut # (Auto) 2.1 Lymph # (Auto) 1.8 [place] # (Auto) 0.3 Eos # (Auto) 0.1 Baso # (Auto) 0.0 Sodium 145 Potassium 3.5 Chloride 110 H Carbon Dioxide 29 Anion Gap 9.5 BUN 13 Creatinine 0.99 Estimated Creat Clear 63 Estimated GFR 56 L Est GFR ( Amer) 68 Glucose 101 Calcium 8.6 Troponin I < 0.02 < 0.02 Triglycerides 129 Cholesterol 131 L LDL Cholesterol 77 VLDL Cholesterol 26 HDL Cholesterol 28 L Cholesterol/HDL Ratio 4.7 H 04/23/18 04/22/18 04/22/18 02:00 23:45 23:45 WBC 5.8 RBC 4.82 Hgb 13.5 Hct 41.5 MCV 86.1 MCH 28.1 MCHC 32.6 RDW 15.7 Plt Count 206 MPV 8.6 Neut % (Auto) 54.7 Lymph % (Auto) 35.5 [place] % (Auto) 6.9 Eos % (Auto) 2.3 Baso % (Auto) 0.6 Neut # (Auto) 3.2 Lymph # (Auto) 2.1 [place] # (Auto) 0.4 Eos # (Auto) 0.1 Baso # (Auto) 0.0 Sodium 142 Potassium 3.6 Chloride 108 H Carbon Dioxide 27 Anion Gap 10.6 BUN 13 Creatinine 0.94 Estimated Creat Clear 66 Estimated GFR 60 Est GFR ( Amer) 73 Glucose 95 Calcium 9.0 Troponin I < 0.02 < 0.02 Triglycerides Cholesterol LDL Cholesterol VLDL Cholesterol HDL Cholesterol Cholesterol/HDL Ratio DS: Diagnosis - Discharge Diagnosis (1) Chest pain Status: Acute (2) Intermittent palpitations Status: Acute (3) Hypertension Status: Acute (4) Tobacco use Status: Acute (5) COPD (chronic obstructive pulmonary disease) Status: Acute (6) Anxiety Status: Acute Discharge Medications - Medications for Discharge Home Medication List at Discharge: New Nicotine [Nicoderm 21mg/24hr patch] 21 mg TD DAILYP PRN #30 patch.td24 PRN Reason: Nicotine Cravings Continue aspirin 81 mg tablet,delayed release 81 mg PO DAILY carvedilol 3.125 mg tablet 3.125 mg PO BID 90 Days #180 tab albuterol sulfate 90 mcg/actuation breath activated powder inhaler 2 puff INHALATION Q4-6H PRN #1 each PRN Reason: shortness of breath or wheezing Isosorbide Mononitrate [Imdur 30mg ER tablet] 30 mg PO DAILY Escitalopram Oxalate 10 mg PO DAILY diazePAM [Valium] 2 mg PO BID Fluticasone Furoate [Arnuity Ellipta] 2 puffs INHALATION DAILY Gabapentin [Gabapentin 300mg Cap] 300 mg PO DAILY Albuterol Sulfate [Albuterol HFA Inhaler] 2 puff INHALATION BID Disposition Disposition: Home, Self-Care
--- NOTE | 2018-04-23 19:58 | Cardiology Report ---
PROCEDURE: 2-D M-mode and color Doppler study INDICATIONS FOR THE TEST: Chest pain COPD Heart MurmurX Tobacco SmokingX Palpitations Fatigue Syncope Edema HypertensionXDiabetes Mellitus Rheumatic Fever SOBXDOE Obesity Hyperlipidemia Family History HD Additional History CAD PATIENT INFORMATION HEIGHT: 61 WEIGHT:162 GENDER: Female B/P:118/97 2-D/M-MODE INTERPRETATION: 2-D MEASUREMENTS OBSERVED VALUES IN CMS Right Ventricular Dimension (RVDd) 1.3 Interventricular Septum (Thickness)(IVsd) .8 Left Ventricular Internal Dimensions(LVIDd) 5.1 Left Ventricular Posterior Wall (Thickness)(LVPWd) .9 Aortic Root 3.0 Aortic Cusp Separation 1.2 Left Atrial Dimensions (LAD) 3.2 2D 1. Left atrium is normal size, left ventricle is normal size, there is no concentric left ventricular hypertrophy, visually estimated ejection fraction 55% with no obvious regional wall motion abnormality. 2. The right atrium and right ventricle are mildly enlarged with normal contractility. 3. The aortic valve is minimally thickened and fibrosed. 4. The mitral and tricuspid valvular grossly normal. 5. The pulmonic valve is poorly visualized. 6. No significant pericardial effusion noted. DOPPLER INTERROGATION: Doppler interrogation of the aortic, mitral and tricuspid valvular presence of mild mitral and tricuspid regurgitation, calculated right ventricular systolic pressure of 39 mmHg, grade 1 diastolic dysfunction seen with tissue Doppler evidence of raised left atrial pressure. CONCLUSION: 1. Normal left ventricular size, preserved ventricular systolic function, visually estimated ejection fraction of 55% with no obvious regional wall motion abnormality, grade 1 diastolic dysfunction seen with tissue Doppler evidence of raised left atrial pressure. 2. Mildly enlarged left ventricle with normal contractility. 3. Mild mitral and tricuspid regurgitation, calculated right ventricular systolic pressure is 39 mmHg consistent with mild pulmonary hypertension. 4. No significant pericardial effusion noted.
== END 2018-04-23 11:30 | disposition home or self-care (01) ==
LOC: ER 23:40 → 2ND 23:40
PROVIDERS: ADMIT Emergency Medicine; ATTEND Emergency Medicine

== ENCOUNTER → 2018-05-20 07:23 | Outpatient (CLI) | payer MEDICARE, MEDICAID, SELFPAY ==
--- NOTE | 2018-05-20 07:25 | NM_ITS ---
History and Indications: Coronary artery disease, hypertension, chronic tobacco use, family history, chest pain shortness of breath and fatigue Procedure: Patient received a 0.4 mg of intravenous Lexiscan, resting heart rate was 65 bpm resting blood pressure 138/72, with Lexiscan maximum heart rate achieved was 99 bpm which is less than 85% of the maximum predicted heart rate and a blood pressure was 127/73. With Lexiscan patient complained shortness of breath. Electrocardiogram: Resting electrocardiogram showed sinus rhythm, with Lexiscan there is less than 1.[address] segment depression from the baseline EKG. The EKG portion of the Lexiscan Myoview is nondiagnostic. Cardiac stress and resting SPECT images: Cardiac stress and resting SPECT images were obtained using technetium 99 Myoview 31.0 mCi at stress 9.8 mCi at rest. Gated SPECT further analysis of segmental wall motion and admission of the ejection fraction also done. Cardiac stress and rest images show uniform myocardial activity without segmental perfusion abnormality, computer derived ejection fraction is over 65% with no regional wall motion abnormality. Right ventricle is normal size and contractility. Conclusion: 1. The EKG portion of the Lexiscan Myoview is nondiagnostic. 2. No scintigraphic evidence of reversible, computer derived ejection fraction is over 65% with no regional wall motion abnormality, right ventricle is normal size and contractility. 3. Normal Lexiscan Myoview study.
--- NOTE | 2018-05-20 07:43 | HMH.ITSHM ---
LISINOPRIL GABAPENTIN DIAZEPAM CARVEDILOL ASA FLUTICASONE ESCITALOPRAM ALBUTEROL
== END ==
PROVIDERS: Family Provider Emergency Medicine; PCP Emergency Medicine; Visit Provider Internal Medicine
DX: R07.9 Chest pain, unspecified
CPT/HCPCS: 78452; 93017; A9502; J2785

== ENCOUNTER → 2018-06-20 08:48 | Outpatient (CLI) | payer MEDICARE, MEDICAID, SELFPAY ==
--- NOTE | 2018-06-20 08:51 | AS_ITS ---
Renal Arterial Duplex Indications: 405.91 Unspecified renovascular hypertension. IMPRESSIONS 1. Elevated right RI noted at 0.8. 2. The right renal artery appears normal. 3. The left renal artery appears normal. Complete renal arterial duplex. Duplex scan and Doppler flow study including spectral analysis, color and hartley scale imaging. Height: Height: 1615.4cm. Height: 636in. Weight: Weight: 69.4kg. Weight: 152.7lb. Body mass index: BMI: 0.3kg/m^2. Body surface area: BSA: 4.44m^2. Location: Vascular laboratory. Patient status: Outpatient. Tables: Arterial flow: + +--------+--------+ Location V sys V ed + +--------+--------+ Right renal - proximal 140cm/s 42.2cm/s + +--------+--------+ Right renal - mid 115cm/s 31.8cm/s + +--------+--------+ Right renal - distal 72.8cm/s 18.6cm/s + +--------+--------+ Left renal - proximal 202cm/s 47.3cm/s + +--------+--------+ Left renal - mid 145cm/s 33.9cm/s + +--------+--------+ Left renal - distal 83.7cm/s 18.8cm/s + +--------+--------+ Right renal-origin 216cm/s 55.3cm/s + +--------+--------+ Left renal-origin 217cm/s 41.1cm/s + +--------+--------+ Renal anatomy: + +------+------+ Left Right + +------+------+ Long axis 9.72cm 7.59cm + +------+------+ Short axis 6.33cm 6.08cm + +------+------+ Velocity ratios: + +-----+ V sys + +-----+ Right renal/aortic 1.6 + +-----+ Left renal/aortic 1.6 + +-----+ (Report amended ) Electronically signed by: Fercho Orosco [id number]
== END ==
PROVIDERS: PCP Emergency Medicine; Visit Provider Internal Medicine
DX: I10 Essential (primary) hypertension (principal)
CPT/HCPCS: 93976

== ENCOUNTER → 2018-07-02 16:52 | Outpatient (CLI) | payer MEDICARE, MEDICAID, SELFPAY ==
--- NOTE | 2018-07-02 16:57 | XR_ITS ---
XR knee RT 4V HISTORY: ITS.REASON: pain ORDERING PHYSICIAN: Ginette Wilburn PATIENT AGE: 63 years COMPARISON: None FINDINGS: Mild tricompartmental osteoarthritic changes are present with decrease in the joint space and osteophyte formation. No fracture or dislocation. No lytic or blastic change. IMPRESSION: Osteoarthritis
== END ==
PROVIDERS: PCP Nurse Practitioner Family; Visit Provider Nurse Practitioner Family
DX: M25.561 Pain in right knee (principal)
CPT/HCPCS: 73564

== ENCOUNTER → 2018-07-05 17:50 | Outpatient (CLI) | payer MEDICARE, MEDICAID, SELFPAY ==
[2018-07-05 19:21] LABS: C-Reactive Protein < 0.2 mg/L (0.0-0.9)
[2018-07-05 20:48] LABS: Erythrocyte Sedimentation Rate 18 mm/hr (0-30)
[2018-07-08 03:56] LABS: RA Latex Turbid. <10.0 IU/mL (0.0-13.9)
[2018-07-08 14:17] LABS: Anti-Centromere B Antibodies <0.2 AI (0.0-0.9); Anti-Jo-1 <0.2 AI (0.0-0.9); Anti-Smith Antibody <0.2 AI (0.0-0.9); Antichromatin Antibodies <0.2 AI (0.0-0.9); Antiscleroderma-70 Antibodies <0.2 AI (0.0-0.9); RNP Antibodies <0.2 AI (0.0-0.9); Sjogren's Anti-SS-A <0.2 AI (0.0-0.9); Sjogren's Anti-SS-B <0.2 AI (0.0-0.9)
[2018-07-08 16:20] LABS: Anti-DNA (DS) Ab Qn 2 IU/mL (0-9)
[2018-07-09 06:08] LABS: Anti-Cyclic Citrullinated Pept 8 units (0-19)
== END ==
PROVIDERS: PCP Nurse Practitioner Family; Visit Provider Nurse Practitioner Family
DX: M25.50 Pain in unspecified joint (principal)
CPT/HCPCS: 36415; 85651; 86140; 86200; 86225; 86235; 86431

== ENCOUNTER 2018-07-12 14:25 | Outpatient (RCR) | payer MEDICARE, MEDICAID, SELFPAY | END 2018-07-12 14:30 | disposition home or self-care (01) | LOC: PT 14:25 | PROVIDERS: Visit Provider Orthopaedic Surgery | DX: M17.11 Unilateral primary osteoarthritis, right knee (principal) ==

== ENCOUNTER → 2020-02-27 11:08 | Outpatient (CLI) | payer MEDICARE, SELFPAY ==
[2020-02-27 11:27] LABS: Basophils % 0.4 % (0.1-2.0); Eosinophils # 0.1 K/mm3 (0.0-0.4); Eosinophils % 2.5 % (0.1-12.0); Hematocrit 40.9 % (37.0-47.0); Lymphocytes # 1.4 K/mm3 (0.7-4.5); Lymphocytes % 29.3 % (10-50); Mean Corpuscular HGB Conc 34.2 g/dL (31.8-35.4); Mean Corpuscular Hemoglobin 30.7 pg (27.0-31.2); Mean Corpuscular Volume 89.8 fl (81-99); Mean Platelet Volume 9.6 fl (7.4-10.4); Monocytes # 0.4 K/mm3 (0.1-1.0); Monocytes % 7.6 % (1.7-9.3); Neutrophils % 60.2 % (37.0-80.0); Platelet Count 183 K/mm3 (142-424); Red Blood Count 4.55 M/mm3 (4.20-5.40); Red Cell Distribution Width 15.4 % (11.5-17.5); White Blood Count 4.9 K/mm3 (4.8-10.8)
[2020-02-27 12:04] LABS: Chloride 108 mmol/L (98-107); Potassium 3.7 mmoL/L (3.5-5.1); Sodium 139 mmol/L (136-145)
[2020-02-27 12:06] LABS: Blood Urea Nitrogen 23 mg/dl (7-17); Estimated Glomerular Filt Rate 84 ml/min (>60); GFR (African American) 101 ML/MIN (>60)
[2020-02-27 12:07] LABS: Alanine Aminotransferase 12 U/L (12-78); Albumin Level 3.9 g/dl (3.5-5.0); Albumin/Globulin Ratio 1.5 (1.1-1.8); Alkaline Phosphatase 87 U/L (38-126); Anion Gap 9.7 mEq/L (5-15); Aspartate Amino Transferase 25 U/L (14-36); Bilirubin,Total 0.6 mg/dl (0.2-1.3); Calcium 9.2 mg/dl (8.4-10.2); Carbon Dioxide 25 mmol/L (22.0-30.0); Cholesterol 170 mg/dl (140-200); Globulin 2.6 g/dL (1.3-3.2); Glucose 127 mg/dl (74-100); Total Protein,Serum 6.5 g/dl (6.3-8.2); Triglycerides 93 mg/dl (30-150); VLDL Cholesterol 19 mg/dL (0-40)
[2020-02-27 12:08] LABS: Chol/HDL Ratio 4.5 (1-3.5); HDL Cholesterol 38 mg/dl (40-60)
[2020-02-27 12:18] LABS: Direct LDL Cholesterol 114.68 mg/dL (100-129)
[2020-02-27 12:26] LABS: 25-OH Vitamin D, Total 31.8 ng/mL (30-100)
[2020-02-27 12:40] LABS: Thyroid Stimulating Hormone 1.99 uIU/mL (0.465-4.68)
== END ==
PROVIDERS: Visit Provider Emergency Medicine
DX: R42 Dizziness and giddiness (principal); I16.1 Hypertensive emergency; E55.9 Vitamin D deficiency, unspecified; R07.9 Chest pain, unspecified
CPT/HCPCS: 36415; 80053; 80061; 82306; 84439; 84443; 85025

== ENCOUNTER → 2020-03-03 10:26 | Outpatient (CLI) | payer MEDICARE, SELFPAY ==
[2020-03-03 11:09] LABS: Hemoglobin A1C 5.6 % (4.0-6.0)
== END ==
PROVIDERS: Visit Provider Physician Assistant
DX: R73.9 Hyperglycemia, unspecified (principal)
CPT/HCPCS: 36415; 83036

== ENCOUNTER → 2020-05-06 14:54 | Outpatient (CLI) | payer MEDICARE, SELFPAY | PROVIDERS: Visit Provider Family Medicine | DX: N30.00 Acute cystitis without hematuria (principal) | CPT/HCPCS: 87086 ==

== ENCOUNTER 2021-04-12 13:54 | Emergency (ER) | payer MEDICARE, SELFPAY ==
[2021-04-12 14:30] VITALS: BP 197/87; PULSE 63; RESP 18; TEMP 36.8; O2SAT 98; BMI 26.5
[2021-04-12 15:13] VITALS: BP 188/96
--- NOTE | 2021-04-12 15:20 | HMH.EDUTC ---
[facility] – [place] Disposition Clinical Impression: Exposure to COVID-19 virus HTN (hypertension) Qualifiers: Hypertension type: unspecified Qualified Code(s): I10 - Essential (primary) hypertension Disposition: Home, Self-Care Condition on Discharge: Good Instructions: DI for COVID-19 (Suspected or Confirmed ), Coronavirus Disease 2019, Preventing the Spread of Coronavirus Discharge Instructions Additional Instructions: *Monitor Temp, Over the counter Motrin or Tylenol as directed/as needed Tylenol every 4 hours and Motrin every 6 hours (as long as your family doctor has told you that you can take it) for fever or pain. and straight to ER if unable to lower temp less than 101.0 after medication given *Warm salt water gargles may help to soothe the throat *Throat Lozenges *Warm fluids like tea with honey may help to soothe the throat *Sleep elevated *Humidifier/Vaporizer Make sure to monitor and record your blood pressure and follow up with your Family Doctor as soon as possible for further treatment and evaluation Straight to ER if any life threatening symptoms Follow up IMMEDIATELY for new or worsening symptoms or no Noticeable improvement over the next 48-72 hours. 911 for difficulty breathing or swallowing You were tested for today for COVID19 your test result should be back in the next 24-48 hours, you may call to the [facility] to see if your test results are back in the next 48 hours [phone] [facility] hours are 9am-9pm You was given a handout with instructions for Self Quarantine and Self isolation for while you wait on test results and what to do if they are positive If you are positive the Health Dept will be contacting you also Make sure to take your Vitamins Vit. C Vit D and Zinc if you can take them You was given a Sample bottle of Bystolic 5mg, TAKE ONE TABLET by mouth DAILY starting now , and follow up with Family Doctor if your COVID test is negative as scheduled if it is positive you may call them to see if Telemedicine is available Referrals: Alex Yeh MD [Primary Care Provider] - As needed Time of Disposition: 15:28 Medical Decision Making - Cristobal Inquiry Pt receiving controlled substance: No Cristobal was queried for this patient: No Vital Signs: 04/12/21 14:30 04/12/21 15:13 04/12/21 15:39 Temperature 98.2 F 98.2 F Temperature Source Oral Pulse Rate 63 Pulse Rate [Left Brachial] 63 Respiratory Rate 18 18 Blood Pressure 188/96 H Blood Pressure [Left Arm] 197/87 H 188/96 H Blood Pressure Mean [Left Arm] 123 126 Blood Pressure Source [Left Arm] Automatic Cuff Automatic Cuff Blood Pressure Position [Left Arm] Sitting Sitting 02 Sat by Pulse Oximetry 98 Oxygen Delivery Method Room Air Orders (Tests/Meds): ORDERS Category Date Time Status Covid-19 Nasal PCR ([facility]) Routine Lab 04/12/21 14:55 Received Medical Decision Narrative: Patient blood pressure elevated in [facility] today, patient reports that she use to have HTN and had to take medication but she has been off of it for awhile States that she has had some dizziness on and off for several months, patient states that she is with her family and wants COVID test States that she will check her blood pressure at home and if her COVID is negative she will make appointment with her PCP and see them for treatment that she is just wanting COVID test today Discussed transfer to the ED for further work up and patient declined States that she use to be on BP medication but has been off of it and had dizziness on and off for years, but would follow up if COVID test neg for further treatment Patient educated on risks associated with untreated HTN and risks for stroke or even Called PCP office and they spoke Bree CONNER and advised to obtain Bystolic sample from Cardiology and have patient start 5mg Daily and follow up in the clinic as scheduled Patient agreed and was given sample medication and advised to take one tablet daily and follow up in the cl
[2021-04-12 15:39] VITALS: BP 188/96; PULSE 63; RESP 18; TEMP 36.8; O2SAT 98
== END 2021-04-12 15:45 | disposition home or self-care (01) ==
PROVIDERS: Emergency Provider Nurse Practitioner; PCP Emergency Medicine
DX: Z20.822 Contact with and (suspected) exposure to COVID-19 (principal); R42 Dizziness and giddiness; F41.8 Other specified anxiety disorders; I10 Essential (primary) hypertension; J44.9 Chronic obstructive pulmonary disease, unspecified; F17.210 Nicotine dependence, cigarettes, uncomplicated
CPT/HCPCS: G0463; 99203; U0003

== ENCOUNTER → 2021-06-03 14:11 | Outpatient (CLI) | payer MEDICARE, SELFPAY ==
[2021-06-03 14:52] LABS: Basophils # 0.1 K/mm3 (0-0.2); Eosinophils # 0.1 K/mm3 (0.0-0.4); Eosinophils % 1.7 % (0.1-12.0); Hematocrit 44.2 % (37.0-47.0); Hemoglobin 14.4 g/dL (12.2-16.2); Lymphocytes # 1.4 K/mm3 (0.7-4.5); Lymphocytes % 28.3 % (10-50); Mean Corpuscular HGB Conc 32.6 g/dL (31.8-35.4); Mean Corpuscular Hemoglobin 31.4 pg (27.0-31.2); Mean Corpuscular Volume 96.2 fl (81-99); Mean Platelet Volume 9.2 fl (7.4-10.4); Monocytes # 0.3 K/mm3 (0.1-1.0); Monocytes % 6.7 % (1.7-9.3); Neutrophils # 3.2 K/mm3 (1.8-7.8); Neutrophils % 62.3 % (37.0-80.0); Platelet Count 256 K/mm3 (142-424); Red Blood Count 4.59 M/mm3 (4.20-5.40); Red Cell Distribution Width 15.7 % (11.5-17.5); White Blood Count 5.1 K/mm3 (4.8-10.8)
[2021-06-03 15:15] LABS: Alanine Aminotransferase 11 U/L (12-78); Albumin/Globulin Ratio 1.5 (1.1-1.8); Alkaline Phosphatase 113 U/L (38-126); Anion Gap 11.5 mEq/L (5-15); Aspartate Amino Transferase 32 U/L (14-36); Bilirubin,Total 0.7 mg/dl (0.2-1.3); Blood Urea Nitrogen 12 mg/dl (7-17); Calcium 9.5 mg/dl (8.4-10.2); Carbon Dioxide 27 mmol/L (22.0-30.0); Chloride 108 mmol/L (98-107); Chol/HDL Ratio 4.9 (1-3.5); Cholesterol 188 mg/dl (140-200); Estimated Glomerular Filt Rate 83 ml/min (>60); GFR (African American) 101 ML/MIN (>60); Globulin 2.7 g/dL (1.3-3.2); Glucose 100 mg/dl (74-100); HDL Cholesterol 38 mg/dl (40-60); Potassium 4.5 mmoL/L (3.5-5.1); Sodium 142 mmol/L (136-145); Total Protein,Serum 6.7 g/dl (6.3-8.2); Triglycerides 137 mg/dl (30-150); VLDL Cholesterol 27 mg/dL (0-40)
[2021-06-03 15:26] LABS: Direct LDL Cholesterol 106.92 mg/dL (100-129)
[2021-06-03 15:30] LABS: 25-OH Vitamin D, Total 23.3 ng/mL (30-100); Free T4 (Free Thyroxine) 1.23 ng/dl (0.78-2.19)
[2021-06-03 15:45] LABS: Thyroid Stimulating Hormone 1.37 uIU/mL (0.465-4.68)
== END ==
PROVIDERS: Visit Provider Emergency Medicine
DX: E55.9 Vitamin D deficiency, unspecified (principal); R07.9 Chest pain, unspecified; R42 Dizziness and giddiness; I16.1 Hypertensive emergency
CPT/HCPCS: 80053; 80061; 82306; 84439; 84443; 85025

== ENCOUNTER 2021-08-15 07:22 | Emergency (ER) | payer MEDICARE, SELFPAY ==
[2021-08-15] VITALS (12 sets, daily range): BP systolic 126–194; BP diastolic 65–94; PULSE 61–87; RESP 12–21; TEMP 37.2; O2SAT 93–99; BMI 24.7
--- NOTE | 2021-08-15 07:22 | ECG_ITS ---
APPROVED REPORT Exam: Resting ECG HR:81 bpm ECG Measurements Heart Rate 81 AXES AK 138 P 48 QRSd 78 QRS 3 QT 370 T -4 QTc 429 Conclusion Normal sinus rhythm Normal ECG Electronically signed by : Pio Vazquez MD 08/16/2021 21:07:00
--- NOTE | 2021-08-15 07:34 | CA_ITS ---
APPROVED REPORT EXAM: Comprehensive 2D, Doppler, and color-flow Echocardiogram [employer]: Meenakshi Anderson, RCS, RVS Ht: 5 ft 3 in Wt: 140lbs BSA: 1.66 BP: 177/94 mmHg Indications: Dizziness and Vertigo, Peripheral Edema, Hypertension/HDD 2D Dimensions IVSd 0.88 cm LVEF (Visual) 68.50 % PWd 0.88 cm LA Volume 38.10 mL LVDd 4.83 cm LA Volume Index 23.00 mL/m2 (M/F) 16-34 LVDs 2.98 cm Aortic Root 2.67 cm Left Atrium 2.68 cm LVOT 2.05 cm (M/F) 1.5-2.5 M-Mode Dimensions RVDd 1.89 cm (0.9-2.6) LA Diam 3.66 cm (1.9-4.0) LVDd 4.25 cm (3.5-5.7) Ao Diam 2.98 cm (2.0-3.7) LVDs 2.77 cm (3.5-5.7) IVSd 1.02 cm (0.6-1.1) PWd 0.64 cm (0.6-1.1) EF (Teich) 64.40% EPSs 0.64 cm FS 34.80% EDV (Teich) 80.80 mL TAPSE 2.48 (<1.7) ESV (Teich) 28.80 mL LV Diastology E Decel Time 237.00 (160-240 msec) E/A Ratio 1.27 MED E' 6.40 (< 7 cm/sec) MED A' 8.20 cm/s E'/MED E' Ratio 15.00 (>14) LAT E' 8.10 (<10 cm/sec) LAT A' 8.80 cm/s E/LAT E' Ratio 11.85 (>14) Aortic Valve LVOT Max 147.00 (70-110 cm/s) LVOT VTI 33.85 cm AoV Peak Luis Alberto. 179.00 (50-130 cm/s) AO Peak GR. 12.90 mmHg AO Mean GR. 6.50 (<5 mmHg) AO VTI 37.47 (18-25 cm) KISHOR (VTI) 2.98 (2.5-4.5 cm2) Mitral Valve MV E Max Luis Alberto. 96.00 (40-130 cm/s) MV A Velocity 76.00 (40-130 cm/s) E/A Ratio 1.27 MV Decel. Time 237.00 (160-240 ms) MV PHT 69.00 ms Pulmonary Valve PV Peak Velocity 76.00 (50-150 cm/s) SD End VMAX 163.00 cm/s Tricuspid Valve TR P. Velocity 231.00 cm/s RAP Estimate 10.00 mmHg RVSP 31.40 mmHg Left Ventricle Left atrium is mildly enlarged, left ventricle is normal size, mild concentric left ventricular hypertrophy, visually estimated ejection fraction 55% with no regional wall motion abnormality, diastolic parameters are inconclusive. Right Ventricle Right atrium and right ventricle are normal size and contractility. Aortic Valve Aortic valve is grossly normal, there is no aortic stenosis or aortic insufficiency. Mitral Valve Mitral valve is grossly normal, there is trace mitral regurgitation. Tricuspid Valve Tricuspid valve grossly normal, there is trace tricuspid regurgitation, tricuspid regurgitation jet velocity is inadequate for calculation of the right ventricular systolic pressure. Pulmonic Valve Pulmonic valve is poorly visualized. Great Vessels Aortic root is normal size. Inferior vena cava is poorly visualized. Pericardium No significant pericardial effusion noted. Conclusion 1. Mildly enlarged left atrium, normal left ventricular size, mild concentric left ventricular hypertrophy, visually estimated ejection fraction 55% with no regional wall motion abnormality, diastolic parameters are inconclusive. 2. Trace mitral and tricuspid regurgitation. 3. No significant pericardial effusion noted. 4. Inferior vena cava is poorly visualized. Electronically signed by : Esau Moyer MD 08/15/2021 20:45:27
--- NOTE | 2021-08-15 07:36 | XR_ITS ---
PROCEDURE: XR CHEST 2V CLINICAL HISTORY: chest pain COMPARISON: CR CXR2V XR chest 2V from 10/22/2017 CR CXR2V XR chest 2V from 04/22/2018 CR CXR2V XR chest 2V from 05/14/2018 FINDINGS: The cardiomediastinal silhouette and pulmonary vascularity are within normal limits. The lungs are clear without infiltrates, suspicious nodules, or pleural effusions. Overlying the posterior lateral aspect of the right 9th rib not readily apparent on the previous exam possibly due to a healing fracture. Follow-up may confirm stability and exclude the possibility of developing nodule. No acute bony findings. IMPRESSION: No acute finding. Faint opacity overlying the right 9th rib possibly due to healing fracture. Consider follow-up confirm stability and exclude the possibility of an underlying nodule Dictated by: Fercho Orosco MD 08/15/2021 08:54 Fercho Orosco MD in [place] 08/15/2021 08:54
--- NOTE | 2021-08-15 07:38 | PC.NURSE ---
aspirin not given d/t reported aspirin allergy
[2021-08-15 07:49] LABS: Basophils % 0.7 % (0.1-2.0); Eosinophils # 0.1 K/mm3 (0.0-0.4); Eosinophils % 2.5 % (0.1-12.0); Hematocrit 41.2 % (37.0-47.0); Hemoglobin 13.4 g/dL (12.2-16.2); Lymphocytes # 1.7 K/mm3 (0.7-4.5); Lymphocytes % 34.5 % (10-50); Mean Corpuscular HGB Conc 32.6 g/dL (31.8-35.4); Mean Corpuscular Hemoglobin 31.5 pg (27.0-31.2); Mean Corpuscular Volume 96.5 fl (81-99); Monocytes # 0.4 K/mm3 (0.1-1.0); Monocytes % 8.4 % (1.7-9.3); Neutrophils # 2.6 K/mm3 (1.8-7.8); Neutrophils % 53.8 % (37.0-80.0); Platelet Count 235 K/mm3 (142-424); Red Blood Count 4.27 M/mm3 (4.20-5.40); White Blood Count 4.8 K/mm3 (4.8-10.8)
[2021-08-15 07:51] LABS: Chloride 107 mmol/L (98-107); Sodium 143 mmol/L (136-145)
--- NOTE | 2021-08-15 07:52 | PC.NURSE ---
PT C/O CHEST HEAVINESS 01/03
[2021-08-15 07:55] LABS: Blood Urea Nitrogen 18 mg/dl (7-17); Carbon Dioxide 30 mmol/L (22.0-30.0); Creatinine Clearance Estimated 54 mL/min (50-200); Estimated Glomerular Filt Rate 71 ml/min (>60); GFR (African American) 86 ML/MIN (>60); Glucose 90 mg/dl (74-100)
--- NOTE | 2021-08-15 08:00 | PC.NURSE ---
PT C/O RT KNEE AND UPPER LEG PAIN AND SWELLING. PT STATES WHEN AMBULATING TO CAR THIS AM BECAME SOB AND STARTED WITH CHEST HEAVINESS. STATES I ALMOST DIDN'T MAKE IT TO THE CAR
--- NOTE | 2021-08-15 08:06 | PC.NURSE ---
Pt. going to xray
[2021-08-15 08:09] LABS: Troponin I < 0.01 ng/ml (0.00-0.034)
--- NOTE | 2021-08-15 08:25 | HMH.EDGENADL ---
ED Disposition Clinical Impression: Chest wall pain Disposition: Home, Self-Care Condition on Discharge: Fair Instructions: DI for Atypical Chest Pain Referrals: Alex Yeh MD [Primary Care Provider] - Jorje Brandon MD [Staff Physician] - Time of Disposition: 10:52 - Critical Care Critical Care Time: No Attestation: On 08/15/21, the high probability of a clinically significant, sudden or life threatening deterioration of the following system(s) required my full and direct attention, intervention and personal management. The time I documented below is in addition to time spent performing reported procedures but includes the following listed in this critical care notation. Medical Decision Making - Medical Records Medical records reviewed: Yes: I reviewed the patient's medical records. - Cristobal Inquiry Pt receiving controlled substance: No Vital Signs: 08/15/21 07:29 08/15/21 07:30 08/15/21 07:52 Temperature 98.9 F Temperature Source Oral Pulse Rate 75 73 Pulse Rate [Left Radial] 80 Respiratory Rate 16 12 12 Blood Pressure 177/94 H 164/89 H Blood Pressure [Right Arm] 194/89 H Blood Pressure Mean 141 135 Blood Pressure Mean [Right Arm] 124 Blood Pressure Source [Right Arm] Automatic Cuff Blood Pressure Position Sitting Blood Pressure Position [Right Arm] Sitting 02 Sat by Pulse Oximetry 98 98 98 Oxygen Delivery Method Room Air Room Air 08/15/21 07:57 08/15/21 08:00 08/15/21 08:30 Temperature Temperature Source Pulse Rate 83 81 73 Pulse Rate [Left Radial] Respiratory Rate 21 17 15 Blood Pressure 127/83 140/78 139/65 Blood Pressure [Right Arm] Blood Pressure Mean 97 105 105 Blood Pressure Mean [Right Arm] Blood Pressure Source [Right Arm] Blood Pressure Position Sitting Blood Pressure Position [Right Arm] 02 Sat by Pulse Oximetry 97 98 99 Oxygen Delivery Method Room Air 08/15/21 09:00 08/15/21 09:30 08/15/21 10:00 Temperature Temperature Source Pulse Rate 73 71 67 Pulse Rate [Left Radial] Respiratory Rate 18 15 18 Blood Pressure 151/72 H 156/85 H 134/74 Blood Pressure [Right Arm] Blood Pressure Mean 98 108 104 Blood Pressure Mean [Right Arm] Blood Pressure Source [Right Arm] Blood Pressure Position Blood Pressure Position [Right Arm] 02 Sat by Pulse Oximetry 99 99 99 Oxygen Delivery Method 08/15/21 10:30 Temperature Temperature Source Pulse Rate 71 Pulse Rate [Left Radial] Respiratory Rate 14 Blood Pressure 141/80 H Blood Pressure [Right Arm] Blood Pressure Mean 106 Blood Pressure Mean [Right Arm] Blood Pressure Source [Right Arm] Blood Pressure Position Blood Pressure Position [Right Arm] 02 Sat by Pulse Oximetry 98 Oxygen Delivery Method - Lab Data Lab Results 08/15/21 07:20: WBC 4.8, RBC 4.27, Hgb 13.4, Hct 41.2, MCV 96.5, MCH 31.5 H, MCHC 32.6, RDW 16.0, Plt Count 235, MPV 9.0, Neut % (Auto) 53.8, Lymph % (Auto) 34.5, [place] % (Auto) 8.4, Eos % (Auto) 2.5, Baso % (Auto) 0.7, Neut # (Auto) 2.6, Lymph # (Auto) 1.7, [place] # (Auto) 0.4, Eos # (Auto) 0.1, Baso # (Auto) 0.0 08/15/21 07:20: Sodium 143, Potassium 4.0, Chloride 107, Carbon Dioxide 30, Anion Gap 10.0, BUN 18 H, Creatinine 0.80, Estimated Creat Clear 54, Estimated GFR 71, Est GFR ( Amer) 86, Glucose 90, Calcium 9.0, Troponin I < 0.01 08/15/21 10:45: Troponin I < 0.01 Result diagrams: 08/15/21 07:20 08/15/21 07:20 Orders (Tests/Meds): ED MEDICATIONS Discontinued Medications Generic Name Dose Route Start Last Admin Trade Name Linkq PRN Reason Stop Dose Admin Nitroglycerin 0.4 mg 08/15/21 07:54 08/15/21 07:53 Nitroglycerin 0.4mg Sl Tablet SL 08/15/21 07:55 0.4 mg ONCE ONE Administration ORDERS Category Date Time Status Troponin I Q3H Lab 08/15/21 13:45 Ordered - ECG Data Tracing #1 Sinus rhythm with ventricular rate of 73 bpm. QRS 98, QTc 467. T wave inversions in V1.
[2021-08-15 10:33] LABS: Troponin I < 0.01 ng/ml (0.00-0.034)
--- NOTE | 2021-08-15 10:55 | PC.NURSE ---
Spoke with cardiology. Follow-up appointment is next sunday, August 22 at 8:30am
== END 2021-08-15 11:14 | disposition home or self-care (01) ==
PROVIDERS: Emergency Provider Emergency Medicine; PCP Emergency Medicine
DX: R07.89 Other chest pain (principal); R20.2 Paresthesia of skin; F41.8 Other specified anxiety disorders; J44.9 Chronic obstructive pulmonary disease, unspecified; I10 Essential (primary) hypertension; F17.210 Nicotine dependence, cigarettes, uncomplicated; Z79.899 Other long term (current) drug therapy
CPT/HCPCS: 71046; 80048; 84484; 85025; 93005; 93306; 99283

== ENCOUNTER → 2021-08-23 07:06 | Outpatient (CLI) | payer MEDICARE, SELFPAY ==
--- NOTE | 2021-08-23 | CA_ITS ---
APPROVED REPORT Exam: Pharmacologic Technologist: Jyoti Oglesby Ht: 5 ft 3 in Wt: 153 lbs BSA: 1.73 m2 HR: 73 bpm BP: 154/69 mmHg Indications: Chest pain Medical History Medications: Amlodipine,,,,, Lisinopril,,,,, Aspirin,,,,, Diazepam,,,,, Atorvastatin,,,,, SyMBICORT,,,,, Albuterol,,,,, BisOPROLOL,,,,, CetIRIizine,,,,, DiTcopan,,,,, Stress Test Details Test: LEXISCAN Reversal agent Aminophyline 100.0 mg, given intravenously for nausea. HR Resting HR: 73 bpm Max Heart Rate (APMHR): 152.077149 bpm Max HR Achieved: 104 bpm Target HR (85% APMHR): 129.932422 bpm % of APMHR: 68.42 Recovery HR: 71 bpm BP Resting BP: 154.0/69.0 mmHg Max BP: 154.0/69.0 mmHg Recovery BP: 143.0/77.0 mmHg ECG Resting ECG: Normal sinus rhythm, NS ST abnormalities, PVC Clinical Exercise duration: 04:00 min Highest Stage Achieved: Exercise capacity: 1.0 METs Stress ECG Conclusion Symptoms: Chest aching, shortness of air, nausea, headache, malaise. Arrhythmias/Ectopy: Occasional isolated PVC ST-T Changes: Very mild exaggeration of baseline abnormalities. Conclusion: Non-diagnostic Lexiscan stress. Myoview images reported separately. Test Summary RECOVERY 03:00 . . 80 . 153/ 65 . . REST 03:39 . . 73 . 154/ 69 . . Stage 1 . . . . . . . Myoview Injected Stage 1 01:00 . . 101 . . . . Stage 2 01:00 . . 93 . 147/ 68 . . Stage 3 01:00 . . 87 . 139/ 70 . . Stage 4 01:00 . . 87 . 145/ 67 . Stop exercise at 04:00 RECOVERY 01:00 . . 87 . . . . RECOVERY 02:00 . . 85 . 153/ 65 . . RECOVERY 03:00 . . 80 . 153/ 65 . . RECOVERY 04:00 . . 78 . 153/ 65 . . RECOVERY 05:00 . . 72 . 143/ 77 . . RECOVERY 05:18 . . 71 . 143/ 77 . . Electronically signed by : Esau Moyer MD 08/23/2021 18:52:29
--- NOTE | 2021-08-23 07:15 | NM_ITS ---
APPROVED REPORT Exam: Nuclear Stress Test Indication: Chest pain, SOB, HTN, Tobacco use, Family history Patient Location: Outpatient Stress Tech: Jyoti Oglesby [place] Tech:Rosy Zuluaga, ARRT, RT (R)(N) Ht: 5 ft 3 in Wt: 150 lbs Bra Size: 36C HR: 73 bpm BP: 154/69 mmHg BSA: 1.71 m2 BMI: 26.5 History: Chest pain, SOB, HTN, Tobacco use, Family history Procedure: Patient received a 0.4 mg of intravenous Lexiscan, resting heart rate 73 bpm, resting blood pressure 154/69 mmHg, with Lexiscan maximum heart rate achived was 94 bpm which is Less than 85 % of the maximum predicted heart rate and blood pressure was 147/68 mmHg. With Lexiscan, patient denied any complaint of chest pain. Electrocardiogram Resting electrocardiogram shows sinus rhythm, with Lexiscan there is less than 1.[address] segment depression noted from the baseline EKG, the EKG portion of the Lexiscan Myoview is nondiagnostic. Cardiac Stress and Resting SPECT Images: Cardiac Stress and Resting SPECT images were obtained using technetium 99m Myoview 30.7 mCi stress and 10.25 mCi at rest. Gated SPECT analysis of segmental wall motion and calculation of the ejection fraction also done. Cardiac stress and rest SPECT views show uniform myocardial activity without segmental perfusion abnormality, comfortable low ejection fraction is over 65% with no regional wall motion abnormality, right ventricle is normal size and contractility. Conclusion: 1. The EKG portion of the Lexiscan Myoview is nondiagnostic. 2. No scintigraphic evidence of reversible ischemia seen, compared right ejection fraction is over 65% with no regional wall motion abnormality, right ventricle is normal size and contractility. 3. Normal Lexiscan Myoview study. Electronically signed by : Esau Moyer MD 08/23/2021 19:07:29
--- NOTE | 2021-08-23 08:45 | HMH.ITSHM ---
Current Home Medications as stated by this patient Cassandra Delgado or freight representative. []PANTOPRAZOLE OXYBUTYNIN LISINOPRIL DIAZEPAM CETIRIZINE BUDESONIDE BISOPROLOL ATORVASTATIN ASA AMLODIPINE ALBUTEROL
== END ==
LOC: RAD 07:06
PROVIDERS: PCP Emergency Medicine; Visit Provider Physician Assistant
DX: I10 Essential (primary) hypertension (principal); J44.9 Chronic obstructive pulmonary disease, unspecified; R06.02 Shortness of breath; R07.2 Precordial pain; R42 Dizziness and giddiness; Z72.0 Tobacco use
CPT/HCPCS: 78452; 93017; A9502; J0280; J2785

== ENCOUNTER 2021-08-26 16:37 | Observation (INO) | payer MEDICARE, SELFPAY ==
[2021-08-26] VITALS (18 sets, daily range): BP systolic 120–186; BP diastolic 70–98; PULSE 59–85; RESP 16–20; TEMP 37–37.1; O2SAT 95–100; BMI 26.5
--- NOTE | 2021-08-26 | IR_ITS ---
APPROVED REPORT Patient Location: Emergent Head Of Strategy: JONNY Andino RT (R) PROCEDURES Left heart catheterization Left ventriculogram Selective coronary angiogram Drug-eluting stent deployment to the ostial proximal mid and distal dominant right coronary in a contiguous manner INDICATION Coronary artery disease, Unstable angina Informed consent was obtained prior to the procedure. COMPLICATIONS NONE Estimated Blood Loss: LESS THAN 10 ML TECHNIQUE One percent lidocaine used to anesthetize the right anterior aspect of the wrist. The right radial artery was accessed via the Seldinger technique. A 6 Upper Sor[place] sheath was placed in the right radial artery. 2.5 mg of verapamil, 800 mcg of nitroglycerin, 1mg Lidocaine and 5000 U Heparin were given through the arterial sheath. The DGTSpa catheter was also used to perform left heart catheterization, left ventriculogram and selective coronary angiogram. At the end the diagnostic angiogram therapeutic heparin was administered giving a therapeutic ACT and the guide catheter was placed in the right coronary artery where a Choice PT extra-support wire was placed distally. A 3 mm x 22 mm resolute Ignacio stent was deployed at 20 fany followed by 24 fany. Each time the catheter was placed in the right coronary there was significant dampening. Nitroglycerin was given on 2 separate occasions. A proximal dissection flap was identified therefore an additional 3 mm x 38 mm resolute Ignacio stent was placed proximal to this for stent yet still overlapping it and extending back into the ostium and deployed at 24 fany. The balloon was then advanced and deployed at 24 fany to mesh the 2 stents. Excellent angiographic results were obtained LOGAN-3 flow was present before and after the procedure. At the end of procedure the apparatus was removed the sheath was removed and hemostasis was achieved using TR banding patient was transferred to the postop putting in stable condition ANGIOGRAPHIC RESULTS The left main artery Normal The left anterior descending artery Has proximal 10% luminal irregularities with tortuosity throughout the mid and distal segment. The circumflex artery Nondominant yet still large with a proximal 10% stenosis The right coronary artery Large dominant with a mid vessel focal greater than 90% stenosis The VALENCIA ventriculogram reveals Not performed The left ventricular end-diastolic pressure Not measured IMPRESSION Critical mid dominant right coronary artery disease as described above Successful stenting of the ostial proximal mid distal dominant right coronary critical disease reduced to 0% with 2 drug-eluting stents placed in a contiguous manner PLAN 1. Brilinta 90 twice daily plus aspirin 81 mg daily 2. LDL less than 55 to be achieved with high intensity statin 3. Cardiac rehabilitation 4. Avoidance of tobacco products 5. Treatment of hypertension Electronically signed by : Jorje Brandon MD 08/26/2021 19:18:46
--- NOTE | 2021-08-26 16:37 | ECG_ITS ---
APPROVED REPORT Exam: Resting ECG HR:78 bpm ECG Measurements Heart Rate 78 AXES OR 132 P 64 QRSd 80 QRS 19 QT 364 T 14 QTc 414 Conclusion Normal sinus rhythm Possible Left atrial enlargement Borderline ECG Electronically signed by : Pio Vazquez MD 08/27/2021 09:49:17
--- NOTE | 2021-08-26 16:50 | HMH.EDGENADL ---
ED Disposition Clinical Impression: Angina pectoris Disposition: Admitted as Observation Condition on Discharge: Good Referrals: Provider,Referral, [Referring] - - Critical Care Critical Care Time: No Attestation: On , the high probability of a clinically significant, sudden or life threatening deterioration of the following system(s) required my full and direct attention, intervention and personal management. The time I documented below is in addition to time spent performing reported procedures but includes the following listed in this critical care notation. Medical Decision Making - Cristobal Inquiry Pt receiving controlled substance: No Vital Signs: 08/26/21 16:39 08/26/21 16:55 08/26/21 18:04 Temperature 98.6 F Temperature Source Oral Pulse Rate 67 65 Pulse Rate [Left Radial] 75 Respiratory Rate 18 19 18 Blood Pressure 186/79 H 159/72 H Blood Pressure [Right Arm] 169/98 H Blood Pressure Mean [Right Arm] 121 Blood Pressure Source [Right Arm] Automatic Cuff Blood Pressure Position [Right Arm] Sitting 02 Sat by Pulse Oximetry 99 96 99 Oxygen Delivery Method Room Air 08/26/21 18:20 Temperature 98.6 F Temperature Source Pulse Rate 65 Pulse Rate [Left Radial] Respiratory Rate 18 Blood Pressure 159/72 H Blood Pressure [Right Arm] Blood Pressure Mean [Right Arm] Blood Pressure Source [Right Arm] Blood Pressure Position [Right Arm] 02 Sat by Pulse Oximetry Oxygen Delivery Method Room Air - Lab Data Lab Results 08/26/21 16:45: WBC 4.2 L, RBC 4.37, Hgb 13.7, Hct 43.2, MCV 98.8, MCH 31.4 H, MCHC 31.8, RDW 16.3, Plt Count 212, MPV 9.6, Neut % (Auto) 55.5, Lymph % (Auto) 33.7, [place] % (Auto) 6.5, Eos % (Auto) 1.7, Baso % (Auto) 2.7 H, Neut # (Auto) 2.3, Lymph # (Auto) 1.4, [place] # (Auto) 0.3, Eos # (Auto) 0.1, Baso # (Auto) 0.1 08/26/21 16:45: Sodium 141, Potassium 4.0, Chloride 106, Carbon Dioxide 27, Anion Gap 12.0, BUN 15, Creatinine 0.90, Estimated Creat Clear 58, Estimated GFR 62, Est GFR ( Amer) 75, Glucose 105 H, Calcium 9.6, Troponin I < 0.01 Result diagrams: 08/26/21 16:45 08/26/21 16:45 Orders (Tests/Meds): ED MEDICATIONS Discontinued Medications Generic Name Dose Route Start Last Admin Trade Name Freq PRN Reason Stop Dose Admin Diphenhydramine HCl 50 mg 08/26/21 18:04 08/26/21 18:17 Diphenhydramine 50mg/Ml Vial IV 08/26/21 18:05 50 mg ONCE ONE Administration Fentanyl Citrate 25 mcg 08/26/21 18:04 Fentanyl 100mcg/2ml Vial IV 08/27/21 18:04 Q3MINP PRN Moderate to Severe Pain Fentanyl Citrate 50 mcg 08/26/21 18:04 08/26/21 18:27 Fentanyl 100mcg/2ml Vial IV 08/27/21 18:04 75 mcg Q3MINP PRN Administration Moderate to Severe Pain Fentanyl Citrate 25 mcg 08/26/21 18:04 Fentanyl 250mcg/5ml Vial IV 08/27/21 18:04 Q3MINP PRN Moderate to Severe Pain Fentanyl Citrate 50 mcg 08/26/21 18:04 Fentanyl 250mcg/5ml Vial IV 08/27/21 18:04 Q3MINP PRN Moderate to Severe Pain Flumazenil 0.2 mg 08/26/21 18:04 Flumazenil 0.1mg/Ml 5ml Vial IV 08/26/21 23:00 NEEDED PRN Sedation Heparin Sodium (Porcine) 10,000 unit 08/26/21 18:04 08/26/21 18:16 Heparin 1,000 Units/Ml 10ml Vial (Nursery Hand) IV 08/26/21 22:04 5,000 unit NEEDED PRN Administration Emergency Box First Responder Heparin Sodium/Sodium Chloride 3,000 unit 08/26/21 18:04 08/26/21 18:16 Heparin 1,000 Units/500ml Ns (Nursery Hand) IV 08/26/21 18:05 3,000 unit ONCE ONE Administration Sodium Chloride 1,000 mls @ 25 mls/hr 08/26/21 18:15 08/26/21 18:16 Sod Chlor 0.9% 1000ml Bag IV 08/27/21 18:04 25 mls/hr .Q25H CACHORRO Administration Lidocaine HCl 20 ml 08/26/21 18:04 Lidocaine 1% 5ml Pf Vial IJ 08/26/21 18:05 ONCE ONE Lidocaine HCl 20 ml 08/26/21 18:04 08/26/21 18:16 Lidocaine 1% 10ml Mdv IJ 08/26/21 18:05 10 ml ONCE ONE Administration Midazolam HCl 1 mg 08/26/21 18:0
--- NOTE | 2021-08-26 16:55 | XR_ITS ---
PROCEDURE INFORMATION: Exam: XR Chest Exam date and time: 08/26/2021 4:55 PM Age: 66 years old Clinical indication: Pain; Left-sided; Additional info: Chest pain TECHNIQUE: Imaging protocol: XR of the chest. Views: 2 views. COMPARISON: CR XR CHEST 2V 08/15/2021 7:59 AM FINDINGS: Lungs: Unremarkable. No consolidation. Pleural spaces: Unremarkable. No pleural effusion. No pneumothorax. Heart/Mediastinum: Unremarkable. No cardiomegaly. Bones/joints: Unremarkable. IMPRESSION: No acute findings.
[2021-08-26 17:05] LABS: Basophils # 0.1 K/mm3 (0-0.2); Basophils % 2.7 % (0.1-2.0); Eosinophils # 0.1 K/mm3 (0.0-0.4); Eosinophils % 1.7 % (0.1-12.0); Hematocrit 43.2 % (37.0-47.0); Hemoglobin 13.7 g/dL (12.2-16.2); Lymphocytes # 1.4 K/mm3 (0.7-4.5); Lymphocytes % 33.7 % (10-50); Mean Corpuscular HGB Conc 31.8 g/dL (31.8-35.4); Mean Corpuscular Hemoglobin 31.4 pg (27.0-31.2); Mean Corpuscular Volume 98.8 fl (81-99); Mean Platelet Volume 9.6 fl (7.4-10.4); Monocytes # 0.3 K/mm3 (0.1-1.0); Monocytes % 6.5 % (1.7-9.3); Neutrophils # 2.3 K/mm3 (1.8-7.8); Neutrophils % 55.5 % (37.0-80.0); Platelet Count 212 K/mm3 (142-424); Red Blood Count 4.37 M/mm3 (4.20-5.40); Red Cell Distribution Width 16.3 % (11.5-17.5); White Blood Count 4.2 K/mm3 (4.8-10.8)
[2021-08-26 17:06] LABS: Chloride 106 mmol/L (98-107); Sodium 141 mmol/L (136-145)
[2021-08-26 17:09] LABS: Blood Urea Nitrogen 15 mg/dl (7-17); Calcium 9.6 mg/dl (8.4-10.2); Carbon Dioxide 27 mmol/L (22.0-30.0); Creatinine Clearance Estimated 58 mL/min (50-200); Estimated Glomerular Filt Rate 62 ml/min (>60); GFR (African American) 75 ML/MIN (>60); Glucose 105 mg/dl (74-100)
[2021-08-26 17:25] LABS: Troponin I < 0.01 ng/ml (0.00-0.034)
[2021-08-26 18:24] LABS: Coronavirus 19, PCR Not Detected (NotDetected); Influenza A, PCR Not Detected (NotDetected); Influenza B, PCR Not Detected (NotDetected)
--- NOTE | 2021-08-26 19:20 | PC.NURSE ---
PT ARRIVED TO FLOOR VIA STRETCHER FROM [employer] [facility] W/STAFF @ 191
[2021-08-26 19:40] LABS: CATHL Activated Clotting Time > 400 SEC (74-125)
[2021-08-27] VITALS (13 sets, daily range): BP systolic 90–127; BP diastolic 38–63; PULSE 50–79; RESP 16–18; TEMP 36.9–37.1; O2SAT 95–98
--- NOTE | 2021-08-27 03:53 | PC.NURSE ---
Pt has rested well this shift. Pt voiced x1 c/o of pain in right arm, admin meds per MAR with relief. Right radial site dressing is C/D/I. Pt remains on RA with O2 sats >90%.
--- NOTE | 2021-08-27 09:21 | P.CONPHA_ITS ---
[facility] Pharmacy VTE Monitoring - Patient Demographics Admission date: 08/26/21 Report Date: 08/27/21 Time: 09:21 Allergies/Adverse Reactions: Patient Allergies nebivolol [From Bystolic] Allergy (Intermediate, Verified 08/17/21 11:08) dizz aspirin Allergy (Mild, Verified 08/17/21 11:08) Bothers stomach Height: 1.6 m Weight: 68 kg Patient Problems: Current Active Problems (Last Updated 10/24/17 @ 09:11 by Adelita Gonzalez RN) Angina pectoris (Acute) - VTE Risk Labs: VTE Related Lab Results Hgb 13.7 g/dL (12.2-16.2) 08/26/21 16:45 Hct 43.2 % (37.0-47.0) 08/26/21 16:45 Plt Count 212 K/mm3 (142-424) 08/26/21 16:45 BUN 15 mg/dl (7-17) 08/26/21 16:45 Creatinine 0.90 mg/dl (0.52-1.04) 08/26/21 16:45 Estimated Creat Clear 58 mL/min (50-200) 08/26/21 16:45 VTE Score: 2 - Prophylaxis VTE Prophylaxis Ordered?: Yes Types of VTE Prophylaxis: TEDS Knee High Location of Applied Device: Bilateral Lower Extremeties
--- NOTE | 2021-08-27 09:37 | HMH.PHAINT ---
MEDICATION RECONCILIATION COMPLETED ON PATIENT USING EXTERNAL FILL HISTORY FROM PHARMACY AND LIST FROM CARDIOLOGY OFFICE. -TANYA CORRALESD
--- NOTE | 2021-08-27 13:32 | HMH.HP ---
*Admission Date: 08/26/21 *Chief complaint: coronary artery disease *History of present illness: Complains of chest pressure and high blood pressure. States that she has had episodes of chest pressure and problems with her blood pressure for the past 2 months. Left anterior chest pressure started a couple of hours ago makes her left arm feel weird. Associated with shortness of breath nausea and diaphoresis. She has had episodes like this more than once a day for the past couple of months. She says she has felt so bad the past couple days that she is stayed in bed, due to just being weak and tired. She was seen here in the emergency department on 08/15/2021 and had a negative work-up. Followed up with cardiology in the office on 08/17/2021 and scheduled for stress test which she had done on 08/23/2021 which was unremarkable. However she continues to have elevated blood pressure and episodic chest pain every day. She does not have known coronary disease. She says she has never had a heart cath. She does have hypertension. She is a smoker. She has a family history of strokes and TIAs in her parents. She has hypertension and hyperlipidemia. She denies diabetes. Subsequently taken to [facility]orer [facility] ANGIOGRAPHIC RESULTS The left main artery Normal The left anterior descending artery Has proximal 10% luminal irregularities with tortuosity throughout the mid and distal segment. The circumflex artery Nondominant yet still large with a proximal 10% stenosis The right coronary artery Large dominant with a mid vessel focal greater than 90% stenosis The VALENCIA ventriculogram reveals Not performed The left ventricular end-diastolic pressure Not measured IMPRESSION Critical mid dominant right coronary artery disease as described above Successful stenting of the ostial proximal mid distal dominant right coronary critical disease reduced to 0% with 2 drug-eluting stents placed in a contiguous manner Patient is w/o chest pain or dyspnea BP has been soft, requiring fluid boluses. [facility] History Medical History: Reports:: Anxiety, Chronic Obstructive Pulmonary Disease (COPD), Coronary Artery Disease, Depression, Heart Murmur, Hyperlipidemia, Hypertension Denies:: Cancer, Diabetes Mellitus Type 1, Diabetes Mellitus Type 2, MRSA *Have you ever received a pneumonia vaccine?: Yes *Have you received a flu vaccine this season?: Yes Other Medical History: Reports: Other Other Surgeries: Yes: No Previous Surgery Amputation: No Fractures: No - *Social History Smoking Status: Current every day smoker Tobacco Type: cigarettes # Packs/Day (cigarettes): 1 Alcohol Intake: never Substance Use Type: denies use *Occupational Status:: retired Housing: house *Travel in the last 8 weeks: None - Psychiatric History Pschychiatric History:: Reports:: Anxiety, Depression Family Hx:: No significant family history Review of Systems - Constitutional Reports lack of energy, Reports malaise, Denies anorexia - Eyes Denies change in vision - ENT Denies abnormal hearing - *Cardiovascular Reports chest pain, Reports chest pain at rest, Reports chest pain with activity, Reports shortness of breath with activity - *Respiratory Reports shortness of breath, Denies chest congestion, Denies cough - *Gastrointestinal Denies abdominal pain - *Genitourinary Denies painful urination - *Musculoskeletal Reports joint pain, Reports muscle weakness, Denies abnormal walking - Integumentary/Breasts Denies yellowing of the skin - *Neurologic Reports abnormal walking, Denies confusion, Denies seizure-like activity - Psychiatric Denies lack of enjoyment, Denies anxiety, Denies behavioral changes - Endocrine Denies cold intolerance - Hematologic/Lymphatic Denies easy bleeding, Denies easy bruising - Allergic/Immunologic Denies hives Meds Home Medications Medication Instructions Recorded Confirmed Type diazepam 5 mg tablet 5 m
[2021-08-27 21:04] LABS: Basophils # 0.1 K/mm3 (0-0.2); Basophils % 1.5 % (0.1-2.0); Eosinophils # 0.1 K/mm3 (0.0-0.4); Eosinophils % 1.3 % (0.1-12.0); Hematocrit 32.5 % (37.0-47.0); Hemoglobin 10.3 g/dL (12.2-16.2); Lymphocytes # 1.6 K/mm3 (0.7-4.5); Lymphocytes % 25.7 % (10-50); Mean Corpuscular HGB Conc 31.8 g/dL (31.8-35.4); Mean Corpuscular Hemoglobin 31.6 pg (27.0-31.2); Mean Corpuscular Volume 99.2 fl (81-99); Mean Platelet Volume 9.7 fl (7.4-10.4); Monocytes # 0.6 K/mm3 (0.1-1.0); Monocytes % 10.5 % (1.7-9.3); Neutrophils # 3.7 K/mm3 (1.8-7.8); Platelet Count 216 K/mm3 (142-424); Red Blood Count 3.27 M/mm3 (4.20-5.40); Red Cell Distribution Width 16.7 % (11.5-17.5); White Blood Count 6.1 K/mm3 (4.8-10.8)
[2021-08-27 21:13] LABS: Chloride 107 mmol/L (98-107); Potassium 3.8 mmoL/L (3.5-5.1); Sodium 141 mmol/L (136-145)
[2021-08-27 21:16] LABS: Alanine Aminotransferase 11 U/L (12-78); Albumin Level 3.2 g/dl (3.5-5.0); Albumin/Globulin Ratio 1.3 (1.1-1.8); Alkaline Phosphatase 74 U/L (38-126); Anion Gap 10.8 mEq/L (5-15); Aspartate Amino Transferase 29 U/L (14-36); Bilirubin,Total 0.6 mg/dl (0.2-1.3); Blood Urea Nitrogen 18 mg/dl (7-17); Carbon Dioxide 27 mmol/L (22.0-30.0); Creatinine Clearance Estimated 48 mL/min (50-200); Estimated Glomerular Filt Rate 45 ml/min (>60); GFR (African American) 54 ML/MIN (>60); Globulin 2.4 g/dL (1.3-3.2); Total Protein,Serum 5.6 g/dl (6.3-8.2)
[2021-08-27 21:17] LABS: Calcium 8.5 mg/dl (8.4-10.2); Glucose 113 mg/dl (74-100)
[2021-08-27 21:48] LABS: Thyroid Stimulating Hormone 3.33 uIU/mL (0.465-4.68)
[2021-08-28] VITALS: BP 139/80; PULSE 71; PULSE 80; RESP 16; TEMP 37.3; O2SAT 96
[2021-08-28 04:00] VITALS: PULSE 70
[2021-08-28 05:00] VITALS: BMI 27.7
[2021-08-28 06:44] LABS: Chol/HDL Ratio 4.1 (1-3.5); Cholesterol 112 mg/dl (140-200); HDL Cholesterol 27 mg/dl (40-60); Triglycerides 123 mg/dl (30-150); VLDL Cholesterol 25 mg/dL (0-40)
[2021-08-28 06:55] LABS: Direct LDL Cholesterol 58.37 mg/dL (100-129)
[2021-08-28 08:00] VITALS: BP 143/70; PULSE 70; PULSE 73; RESP 16; TEMP 36.9; O2SAT 95
--- NOTE | 2021-08-28 08:07 | PC.NURSE ---
No acute episodes or complaints during my shift. NSR on tele. Right radial site c/d/i. Call light in reach.
[2021-08-28 09:48] VITALS: BMI 27.6
--- NOTE | 2021-08-28 11:14 | HMH.DCSUM ---
General - General Admission date:: 08/26/21 Discharge date: 08/28/21 HPI HPI: Complains of chest pressure and high blood pressure. States that she has had episodes of chest pressure and problems with her blood pressure for the past 2 months. Left anterior chest pressure started a couple of hours ago makes her left arm feel weird. Associated with shortness of breath nausea and diaphoresis. She has had episodes like this more than once a day for the past couple of months. She says she has felt so bad the past couple days that she is stayed in bed, due to just being weak and tired. She was seen here in the emergency department on 08/15/2021 and had a negative work-up. Followed up with cardiology in the office on 08/17/2021 and scheduled for stress test which she had done on 08/23/2021 which was unremarkable. However she continues to have elevated blood pressure and episodic chest pain every day. She does not have known coronary disease. She says she has never had a heart cath. She does have hypertension. She is a smoker. She has a family history of strokes and TIAs in her parents. She has hypertension and hyperlipidemia. She denies diabetes. Subsequently taken to phlebotomy lab assistant ANGIOGRAPHIC RESULTS The left main artery Normal The left anterior descending artery Has proximal 10% luminal irregularities with tortuosity throughout the mid and distal segment. The circumflex artery Nondominant yet still large with a proximal 10% stenosis The right coronary artery Large dominant with a mid vessel focal greater than 90% stenosis The VALENCIA ventriculogram reveals Not performed The left ventricular end-diastolic pressure Not measured IMPRESSION Critical mid dominant right coronary artery disease as described above Successful stenting of the ostial proximal mid distal dominant right coronary critical disease reduced to 0% with 2 drug-eluting stents placed in a contiguous manner Patient is w/o chest pain or dyspnea BP has been soft, requiring fluid boluses. Hospital Course Hospital Course: The patient was seen in the emergency room with clinical features suggesting Philip ischemia. She was taken to the [facility] by Dr. Brandon. ANGIOGRAPHIC RESULTS The left main artery Normal The left anterior descending artery Has proximal 10% luminal irregularities with tortuosity throughout the mid and distal segment. The circumflex artery Nondominant yet still large with a proximal 10% stenosis The right coronary artery Large dominant with a mid vessel focal greater than 90% stenosis The VALENC[place] ventriculogram reveals Not performed The left ventricular end-diastolic pressure Not measured IMPRESSION Critical mid dominant right coronary artery disease as described above Successful stenting of the ostial proximal mid distal dominant right coronary critical disease reduced to 0% with 2 drug-eluting stents placed in a contiguous manner PLAN 1. Brilinta 90 twice daily plus aspirin 81 mg daily 2. LDL less than 55 to be achieved with high intensity statin 3. Cardiac rehabilitation 4. Avoidance of tobacco products 5. Treatment of hypertension Patient's blood pressure was a little soft yesterday, she required a fluid bolus. She was instructed to ambulate about the room. This morning she feels much better, systolic is in the 140s. Feels ready to go home. No chest pain no dyspnea minimal tenderness at the right upper extremity. I emphasized the importance of adherence to her antiplatelet regimen. She is already made plans for appropriate follow-up Objective Vital signs: Temp Pulse Resp BP Pulse Ox 98.5 F 73 16 143/70 H 95 08/28/21 08:00 08/28/21 08:00 08/28/21 08:00 08/28/21 08:00 08/28/21 08:00 no acute distress - *Routine HEENT Exam Head: Present: normocephalic Eye: Present: EOMI, PERRL ENT: Present: mucous membranes moist - *Routine Neck Exam Present: supple - *Routine R
--- NOTE | 2021-08-28 11:45 | HMH.PHACLD ---
Cassandra Delgado has received discharge medication counseling on the following medications: ASPIRIN [place] (NEW) LISINOPRIL ATORVASTATIN BISOPROLOL [place] PRESCRIPTION WAS SENT TO [facility] SINCE THEY ARE THE ONLY PHARMACY OPEN TODAY. PATIENT VERBALIZED UNDERSTANDING AND HAD NO QUESTIONS AT THIS TIME. -AMANDA TAYLOR, PHARMD
--- NOTE | 2021-08-28 12:44 | PC.NURSE ---
pt has been discharged via private car. voiced understanding of dc instructions and follow up appts saline ;lock and tele dcd
== END 2021-08-28 12:40 | disposition home or self-care (01) ==
LOC: ER 18:05 → CATHLAB 18:51 → 2ND 18:55
PROVIDERS: Internal Medicine; Admitting Provider Family Medicine; Emergency Provider Emergency Medicine; PCP Emergency Medicine; Visit Provider Family Medicine
DX: I25.110 Atherosclerotic heart disease of native coronary artery with unstable angina pectoris (principal); I10 Essential (primary) hypertension; F17.210 Nicotine dependence, cigarettes, uncomplicated; J44.9 Chronic obstructive pulmonary disease, unspecified; E78.5 Hyperlipidemia, unspecified; Z79.899 Other long term (current) drug therapy; E03.9 Hypothyroidism, unspecified; Z20.822 Contact with and (suspected) exposure to COVID-19
CPT/HCPCS: G0378; 71046; 80048; 80053; 80061; 84443; 84484; 85025; 85347; 92928; 93005; 93458; 99152; 99153; 99284; C1725; C1760; C1769; C1874; C1876; C9600; C9803; J1644; J2405; Q9967; U0003; U0005

== ENCOUNTER → 2021-08-29 15:46 | Outpatient (CLI) | payer MEDICARE, SELFPAY ==
[2021-08-29 16:23] LABS: Hematocrit 32.3 % (37.0-47.0); Hemoglobin 10.6 g/dL (12.2-16.2)
[2021-08-29 18:21] LABS: Blood Urea Nitrogen 14 mg/dl (7-17); Estimated Glomerular Filt Rate 62 ml/min (>60); GFR (African American) 75 ML/MIN (>60)
== END ==
PROVIDERS: Visit Provider Family Medicine
DX: Z01.812 Encounter for preprocedural laboratory examination (principal); Z51.81 Encounter for therapeutic drug level monitoring
CPT/HCPCS: 36415; 82565; 84520; 85014; 85018

== ENCOUNTER → 2021-08-30 09:34 | Outpatient (CLI) | payer MEDICARE, SELFPAY ==
--- NOTE | 2021-08-30 09:36 | CA_ITS ---
FINAL REPORT CLINICAL HISTORY: rule out pseudo,S/P HEART CATH 1 WEEK AGO,BRUISING RT WRIST FINDINGS: Doppler imaging was obtained of the right wrist radial artery. There is proper flow in the radial artery. There is no significant hematoma or pseudo aneurysm identified. IMPRESSION: No significant hematoma or pseudo aneurysm identified. Reviewed, Interpreted and Dictated by Russell Mckeon MD Transcribed by Veronica Sow Authenticated by Russell Mckeon MD on 08/30/2021 01:37:19 [facility]
== END ==
LOC: RT 09:36
PROVIDERS: PCP Emergency Medicine; Visit Provider Nurse Practitioner Family
DX: I72.9 Aneurysm of unspecified site (principal); I77.0 Arteriovenous fistula, acquired; M25.531 Pain in right wrist; T14.8XXA Other injury of unspecified body region, initial encounter
CPT/HCPCS: 93931

== ENCOUNTER → 2021-09-08 12:38 | Outpatient (CLI) | payer MEDICARE, SELFPAY | PROVIDERS: PCP Emergency Medicine; Visit Provider Nurse Practitioner | DX: Z20.822 Contact with and (suspected) exposure to COVID-19 (principal) | CPT/HCPCS: C9803; U0003; U0005 ==

== ENCOUNTER 2021-12-14 14:13 | Emergency (ER) | payer MEDICARE, SELFPAY ==
[2021-12-14 14:15] VITALS: BP 153/90; PULSE 97; RESP 19; TEMP 36.8; O2SAT 97; BMI 29.9
[2021-12-14 14:45] LABS: UTC Influenza A Antigen Negative (Negative); UTC Influenza B Antigen Negative (Negative)
--- NOTE | 2021-12-14 14:50 | HMH.EDUTC ---
[facility] [place] Clinical Impression: Flu-like symptoms Disposition: Home, Self-Care Condition on Discharge: Good Instructions: Influenza, DI for Influenza -- Adult, Benzonatate, Oseltamivir Additional Instructions: ? Start Tamiflu today if you are going to take it. Discussed risk and possible benefits. ? Lots of rest ? Increase Fluids water, Gatorade, powerade, pedialyte,if /toddler/child ? Alternate Tylenol and / or ibuprofen as discussed for fever, aches, chills Follow up IMMEDIATELY with your family doctor for new or worsening Symptoms OR no noticeable improvement over the next 48-72 hours, 911 for difficulty or breathing ? You or your child area contagious until no fever, aches, chills for 24 hours with medication for symptoms ? Help Prevent the spread of influenza: ? Wash your hands often. Use soap and water. Wash your hands after you use the bathroom, change a child's diapers, or sneeze. Wash your hands before you prepare or eat food. Use gel hand cleanser that has 60% alcohol, when soap and water are not available. Do not touch your eyes, nose, or mouth unless you have washed your hands first. ? Cover your mouth when you sneeze or cough. Cough into a tissue or the bend of your arm. If you use a tissue, throw it away immediately and wash your hands. ? Clean shared items with a germ-killing tank cleaner. Clean table surfaces, doorknobs, and light switches. Do not share towels, silverware, and dishes with people who are sick. Wash bed sheets, towels, silverware, and dishes with soap and water. ? Wear a mask over your mouth and nose if you are sick. The face mask may help protect others from becoming infected with the flu. Wear the mask when in common areas of your home or if you seek care with a healthcare provider. ? Stay away from others if you are sick. Stay at home until 24 hours after your fever and symptoms are gone. Prescriptions: Benzonatate [Benzonatate 100mg cap] 100 mg PO Q8HP PRN #15 cap PRN Reason: Cough Transmission Status: Pending to [facility] Oseltamivir Phosphate [Tamiflu 75mg Capsule] 75 mg PO BID #10 cap Transmission Status: Pending to [facility] Referrals: Alex Yeh MD [Primary Care Provider] - As needed Forms: Work/School Release Time of Disposition: 15:01 Medical Decision Making - Cristobal Inquiry Pt receiving controlled substance: No Cristobal was queried for this patient: No Vital Signs: 12/14/21 14:15 Temperature 98.2 F Temperature Source Oral Pulse Rate [Right Radial] 97 H Respiratory Rate 19 Blood Pressure [Right Arm] 153/90 H Blood Pressure Mean [Right Arm] 111 Blood Pressure Source [Right Arm] Automatic Cuff Blood Pressure Position [Right Arm] Sitting 02 Sat by Pulse Oximetry 97 Oxygen Delivery Method Room Air - Lab Data Lab results reviewed: Yes: I reviewed the patient's lab results. Lab Results 12/14/21 14:33: Influenza Type A Ag Negative, Influenza Type B Ag Negative [facility] [place] - General Stated complaint: [place], SOA, congestion, nausea, chills Time Seen by Provider: 12/14/21 14:50 Mode of Arrival: Ambulatory Source of Information: Patient Limitations: No Limitations Description of Symptoms (Recalled from Triage Doc. by RN): C/O bodyaches, chills, fever, cough since yesterday. Advises of flu exposure HEENT Symptoms (Recalled from RN notes): Yes Resp Symptoms (Recalled from RN notes): Yes (cough) Skin Symptoms (Recalled from RN notes): No MS Symptoms (Recalled from RN notes): Yes (bodyaches) Functional Status (Recalled from RN notes): n/a - History of Present Illness Provider Complaint: Patient states that she was around her boss on Sunday and Sunday that has since tested positive for the flu States that she is now having body aches, chills, fever and fatigue so she came in today to get checked for the flu - Related Data Previous Rx's Medication Instructions Recorded amlodipine 5 mg tablet 5 mg PO DAILY #30 tab 08/30/21 lisinopril 10 mg t
[2021-12-14 15:07] VITALS: BP 153/90; PULSE 97; RESP 19; TEMP 36.8; O2SAT 97
[2021-12-14 15:21] LABS: Adenovirus,PCR Not Detected (NotDetected); Bordetella Pertussis Not Detected (NotDetected); Chlamydophila Pneumoniae, PCR Not Detected (NotDetected); Coronavirus 19, PCR Not Detected (NotDetected); Coronavirus 229E Not Detected (NotDetected); Coronavirus NL63 Not Detected (NotDetected); Coronavirus OC43 Not Detected (NotDetected); Coronovirus HKU1,PCR Not Detected (NotDetected); Human Metapneumovirus Not Detected (NotDetected); Influenza A, PCR Not Detected (NotDetected); Influenza AH1, 2009 Not Detected (NotDetected); Influenza AH1, PCR Not Detected (NotDetected); Influenza AH3,PCR Not Detected (NotDetected); Influenza B, PCR Not Detected (NotDetected); Mycoplasma Pneumoniae, PCR Not Detected (NotDetected); Parainfluenza 1, PCR Not Detected (NotDetected); Parainfluenza 2, PCR Not Detected (NotDetected); Parainfluenza 3, PCR Not Detected (NotDetected); Parainfluenza 4, PCR Not Detected (NotDetected); Respiratory Syncytial Virus Not Detected (NotDetected); Rhinovirus/Enterovirus Not Detected (NotDetected)
== END 2021-12-14 15:13 | disposition home or self-care (01) ==
PROVIDERS: Emergency Provider Nurse Practitioner; PCP Emergency Medicine
DX: J11.1 Influenza due to unidentified influenza virus with other respiratory manifestations (principal); F17.210 Nicotine dependence, cigarettes, uncomplicated
CPT/HCPCS: G0463; 87581; 87632; 87798; 87804; 99213; C9803; U0003; U0005

== ENCOUNTER → 2022-03-02 11:58 | Outpatient (CLI) | payer MEDICARE, SELFPAY | LOC: RAD 11:59 | PROVIDERS: PCP Emergency Medicine; Visit Provider Nurse Practitioner Family | DX: I20.8 Other forms of angina pectoris; I10 Essential (primary) hypertension; E78.2 Mixed hyperlipidemia; R60.9 Edema, unspecified; Z72.0 Tobacco use; Z95.5 Presence of coronary angioplasty implant and graft | CPT/HCPCS: 78452; 93017; A9502; J0280; J2785 ==

== ENCOUNTER → 2022-03-09 15:22 | Outpatient (CLI) | payer MEDICARE, SELFPAY ==
[2022-03-09 15:48] LABS: Basophils # 0.1 K/mm3 (0-0.2); Basophils % 0.9 % (0.1-2.0); Eosinophils # 0.1 K/mm3 (0.0-0.4); Eosinophils % 2.4 % (0.1-12.0); Hematocrit 36.6 % (37.0-47.0); Hemoglobin 11.5 g/dL (12.2-16.2); Lymphocytes # 1.5 K/mm3 (0.7-4.5); Lymphocytes % 25.3 % (10-50); Mean Corpuscular HGB Conc 31.4 g/dL (31.8-35.4); Mean Corpuscular Hemoglobin 29.2 pg (27.0-31.2); Mean Corpuscular Volume 93.1 fl (81-99); Mean Platelet Volume 9.3 fl (7.4-10.4); Monocytes # 0.5 K/mm3 (0.1-1.0); Neutrophils # 3.7 K/mm3 (1.8-7.8); Neutrophils % 63.4 % (37.0-80.0); Platelet Count 296 K/mm3 (142-424); Red Blood Count 3.94 M/mm3 (4.20-5.40); Red Cell Distribution Width 19.1 % (11.5-17.5); White Blood Count 5.8 K/mm3 (4.8-10.8)
[2022-03-09 16:07] LABS: Anion Gap 8.6 mEq/L (5-15); Blood Urea Nitrogen 16 mg/dl (7-17); Calcium 9.1 mg/dl (8.4-10.2); Carbon Dioxide 29 mmol/L (22.0-30.0); Chloride 109 mmol/L (98-107); Estimated Glomerular Filt Rate 62 ml/min (>60); GFR (African American) 75 ML/MIN (>60); Glucose 120 mg/dl (74-100); Potassium 4.6 mmoL/L (3.5-5.1); Sodium 142 mmol/L (136-145)
== END ==
LOC: LAB 15:23
PROVIDERS: PCP Emergency Medicine; Visit Provider Nurse Practitioner
DX: I10 Essential (primary) hypertension (principal); I63.9 Cerebral infarction, unspecified; R06.02 Shortness of breath
CPT/HCPCS: 36415; 80048; 83735; 85025

== ENCOUNTER → 2022-04-12 14:41 | Outpatient (CLI) | payer MEDICARE, SELFPAY ==
[2022-04-12 15:21] LABS: Basophils # 0.1 K/mm3 (0-0.2); Basophils % 1.2 % (0.1-2.0); Eosinophils # 0.1 K/mm3 (0.0-0.4); Eosinophils % 2.7 % (0.1-12.0); Hematocrit 41.4 % (37.0-47.0); Hemoglobin 12.3 g/dL (12.2-16.2); Lymphocytes # 1.3 K/mm3 (0.7-4.5); Lymphocytes % 25.8 % (10-50); Mean Corpuscular HGB Conc 29.6 g/dL (31.8-35.4); Mean Corpuscular Hemoglobin 29.1 pg (27.0-31.2); Mean Corpuscular Volume 98.4 fl (81-99); Mean Platelet Volume 8.9 fl (7.4-10.4); Monocytes # 0.5 K/mm3 (0.1-1.0); Neutrophils # 3.1 K/mm3 (1.8-7.8); Neutrophils % 60.3 % (37.0-80.0); Platelet Count 302 K/mm3 (142-424); Red Blood Count 4.21 M/mm3 (4.20-5.40); Red Cell Distribution Width 18.4 % (11.5-17.5); White Blood Count 5.1 K/mm3 (4.8-10.8)
[2022-04-19 17:58] LABS: D001-IgE D pteronyssinus <0.10 kU/L (Class 0); D002-IgE D farinae <0.10 kU/L (Class 0); E001-IgE Cat Dander <0.10 kU/L (Class 0); E005-IgE Dog Dander <0.10 kU/L (Class 0); E072-IgE Mouse Urine <0.10 kU/L (Class 0); G002-IgE Bermuda Grass <0.10 kU/L (Class 0); G006-IgE Timothy Grass <0.10 kU/L (Class 0); I006-IgE Cockroach, German <0.10 kU/L (Class 0); Immunoglobulin E, Total 37 IU/mL (6-495); M001-IgE Penicillium chrysogen <0.10 kU/L (Class 0); M002-IgE Cladosporium herbarum <0.10 kU/L (Class 0); M003-IgE Aspergillus fumigatus <0.10 kU/L (Class 0); M006-IgE Alternaria alternata <0.10 kU/L (Class 0); T001-IgE Maple/Box Elder <0.10 kU/L (Class 0); T003-IgE Common Silver Birch <0.10 kU/L (Class 0); T006-IgE Cedar, Mountain <0.10 kU/L (Class 0); T007-IgE Oak, White <0.10 kU/L (Class 0); T008-IgE Elm, American <0.10 kU/L (Class 0); T010-IgE Walnut <0.10 kU/L (Class 0); T011-IgE Maple Leaf Sycamore <0.10 kU/L (Class 0); T014-IgE Cottonwood <0.10 kU/L (Class 0); T015-IgE Ash, White <0.10 kU/L (Class 0); T022-IgE Pecan, Hickory <0.10 kU/L (Class 0); T070-IgE White Mulberry <0.10 kU/L (Class 0); W001-IgE Ragweed, Short <0.10 kU/L (Class 0); W011-IgE Thistle, Russian <0.10 kU/L (Class 0); W014-IgE Pigweed, Common <0.10 kU/L (Class 0); W018-IgE Sheep Sorrel <0.10 kU/L (Class 0)
== END ==
PROVIDERS: PCP Emergency Medicine; Visit Provider Internal Medicine Pulmonary Disease
DX: J45.909 Unspecified asthma, uncomplicated (principal)
CPT/HCPCS: 36415; 82785; 85025; 86003

== ENCOUNTER → 2022-05-25 12:34 | Outpatient (CLI) | payer MEDICARE, SELFPAY ==
[2022-05-25 13:30] VITALS: PULSE 66; PULSE 70
[2022-05-25 14:10] VITALS: BP 143/79; PULSE 77; RESP 18; O2SAT 97
--- NOTE | 2022-05-25 14:24 | CT_ITS ---
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 Low-dose protocol was utilized. CTDI vol (mGy): 2.90 DLP (mGy-cm): 89.86 There is no axillary adenopathy. There is no hilar or mediastinal adenopathy. The heart is proper size. There is no pericardial or pleural effusion. Limited images of the upper abdomen are unremarkable. Lung window images demonstrate a subtle 2 mm nodule in the left lower lobe posteriorly. This is best seen on image 148 of series 2. IMPRESSION: Benign appearing tiny nodule of the left lower lobe, probably a granuloma. Lung RADS category 2. Recommend 12 month follow-up low-dose chest CT. Reviewed, Interpreted and Dictated by Chayo Moreno MD Transcribed by Veronica Sow Authenticated and [facility]
[2022-05-25 14:25] VITALS: BP 139/76; PULSE 80; RESP 22; O2SAT 98
== END ==
PROVIDERS: PCP Emergency Medicine; Visit Provider Internal Medicine Pulmonary Disease
DX: Z87.891 Personal history of nicotine dependence (principal); Z12.2 Encounter for screening for malignant neoplasm of respiratory organs; R06.02 Shortness of breath
CPT/HCPCS: 71271; 94060; 94618; 94640; 94727; 94729; 94762

== ENCOUNTER 2022-08-01 13:17 | Emergency (ER) | payer MEDICARE, SELFPAY ==
[2022-08-01] VITALS (7 sets, daily range): BP systolic 101–167; BP diastolic 55–84; PULSE 64–84; RESP 16–20; TEMP 36.6; O2SAT 94–98; BMI 31.8
--- NOTE | 2022-08-01 13:38 | XR_ITS ---
FINAL REPORT CLINICAL HISTORY: pain/injury post fall FINDINGS: RIGHT SHOULDER Two views demonstrate no acute fracture or dislocation. There is mild AC joint degenerative change. The visualized bony structures are well aligned. No soft tissue abnormality is seen. IMPRESSION: No acute process. Reviewed, Interpreted and Dictated by He Saxena III, MD Transcribed by Thomas Laura Authenticated and [facility]
--- NOTE | 2022-08-01 15:11 | HMH.EDGENADL ---
Discharge Plan Disposition Patient Disposition: Home, Self-Care Condition: Good Prescriptions Prescriptions: New hydrocodone-acetaminophen 5-325 mg tablet 1 tab PO DAILY PRN (Reason: pain) Qty: 7 0RF ondansetron 4 mg tablet,disintegrating 4 mg PO DAILY Qty: 30 0RF No Action albuterol sulfate 90 mcg/actuation HFA aerosol inhaler 2 inh IH QID PRN (Reason: shortness of breath or wheezing) 90 Days Qty: 8.5 2RF bisoprolol fumarate 5 mg tablet 5 mg PO QDAY Qty: 30 5RF clopidogrel [Plavix] 75 mg tablet 75 mg PO DAILY Qty: 90 3RF valsartan-hydrochlorothiazide [Diovan HCT] 160-25 mg tablet 1 tab PO DAILY Qty: 90 3RF fluticasone propionate [Flonase Allergy Relief] 50 mcg/actuation spray,suspension 2 spray intranasal DAILY 90 Days Qty: 16 3RF Rx Instructions: administer into each nostril azelastine 205.5 mcg (0.15 %) spray,non-aerosol 2 spray intranasal HS 90 Days Qty: 30 3RF Rx Instructions: administer into each nostril lysine 500 mg tablet 500 mg PO DAILY Qty: 30 0RF aspirin 81 mg tablet,delayed release (DR/EC) 81 mg PO DAILY Qty: 90 3RF atorvastatin 10 mg tablet See Rx Instructions .ROUTE .COMPLEX Qty: 90 3RF Dose Instruction: TAKE ONE TABLET BY MOUTH AT BEDTIME FOR CHOLESTEROL Rx Instructions: TAKE ONE TABLET BY MOUTH AT BEDTIME FOR CHOLESTEROL fluticasone propion-salmeterol [Advair Diskus] 250-50 mcg/dose blister with device 1 inh inhalation BID 90 Days Qty: 180 3RF Referrals Follow up/Referrals: Adrián Pack JR, MD [Physician] - See instructions (shoulder pain possible ligamentous vs clavicle injury ) Alex Yeh MD [Primary Care Provider] - See instructions Activity Restrictions/Add. Instructions Additional Instructions/Restrictions: Please follow-up with your primary care physician as needed. You have also been given a referral to orthopedics for shoulder pain. May require MRI and further imaging. Please take Tylenol and ibuprofen for pain control. You have also been prescribed [place] please take only if [id number] does not relieve pain. Please keep sling in place for comfort. Return for any numbness, weakness, discoloration of your arm or any other concerns. Clinical Impressions Clinical Impression: Acute pain of right shoulder due to trauma Instructions Patient Instructions: DI for Shoulder Pain Print Language Print Language: Ghanaian Discharge ED Provider: Jasmin Solomon General Adult HPI General Chief complaint: PAIN Stated complaint: AO 08/01@home@1100 pain in Rt shoulder Time Seen by Provider: 08/01/22 13:20 Mode of Arrival: Ambulatory Source of Information: Patient Limitations: No Limitations Description of Symptoms (Recalled from ER Triage Doc. by RN): c/o right shoulder pain after missing the bottom step and falling into the wall with her shoulder and states she felt it go in and pop. Incident happened around 1100. Pt states she is unable to move arm. Motrin taken prior to arrival. History of Present Illness HPI narrative: Sandy is a 67 yo female w/ no significant PMH presenting to the ED for (R) shoulder pain following a mechanical fall. Patient reports she fell into the wall after loosing her footing on the step. Patient slipped down two steps and fell into wall. She reports hearing a pop. Patient able to move arm but has significant pain w/ rom. No sensory changes. Patient took motrin prior to arrival. Patient denies hitting head, -LOC. Patient denies any neck, chest, abdominal, back or other extremity pain. NO blood thinners. NO obvious gross deformtiy. complaint: (R) shoulder pain, mechanical fall Onset (ago): hour(s) Location: upper extremity Radiation: non-radiation Severity: moderate Severity scale (1-10): 7 Quality: sharp Consistency: constant Relieving factors: none Exacerbating factors: none Associated symptoms: denies other symptoms Treatments prior to arrival: NSAID Related Data
== END 2022-08-01 16:40 | disposition home or self-care (01) ==
PROVIDERS: Emergency Provider Student in an Organized Health Care Education/Training Program; PCP Emergency Medicine
DX: R06.02 Shortness of breath (principal); M25.511 Pain in right shoulder; R42 Dizziness and giddiness; I11.9 Hypertensive heart disease without heart failure; K21.9 Gastro-esophageal reflux disease without esophagitis; R91.1 Solitary pulmonary nodule; E53.8 Deficiency of other specified B group vitamins; E55.9 Vitamin D deficiency, unspecified; J43.8 Other emphysema; F17.210 Nicotine dependence, cigarettes, uncomplicated; Z79.02 Long term (current) use of antithrombotics/antiplatelets; Z79.51 Long term (current) use of inhaled steroids; Z79.899 Other long term (current) drug therapy; Z95.5 Presence of coronary angioplasty implant and graft; Z82.49 Family history of ischemic heart disease and other diseases of the circulatory system; W10.9XXA Fall (on) (from) unspecified stairs and steps, initial encounter
CPT/HCPCS: 73030; 99283

== ENCOUNTER → 2022-08-24 10:09 | Outpatient (CLI) | payer MEDICARE, SELFPAY ==
--- NOTE | 2022-08-24 10:09 | MR_ITS ---
FINAL REPORT CLINICAL HISTORY: shoulder pain, fall dec , hit shoulder on wall, pain, limited rom. FINDINGS: Multiplanar MR imaging of the right shoulder was performed without contrast. There is motion on many of the images which decreases sensitivity of the exam. There is a high-grade full-thickness tear of the footprint of the supraspinatus tendon. The tendon is retracted to the mid humeral head. There is also a partial-thickness tear of the articular surface of the distal infraspinatus tendon involving greater than 50% thickness of the tendon with a full-thickness component more anteriorly. There are mild degenerative changes of the acromioclavicular joint. There is a moderate amount of fluid in the joint. A moderate amount of fluid is seen in the subacromial/subdeltoid bursa. The glenoid labrum is intact. The long head of the biceps tendon is intact. No significant glenohumeral joint effusion is seen. There is no evidence of fracture or dislocation. There is mild supraspinatus muscle atrophy. There is no evidence of soft tissue mass. IMPRESSION: Suboptimal images secondary to motion. High-grade full-thickness tear of the footprint of the supraspinatus tendon with the tendon retracted to the mid humeral head. Partial-thickness tear of the articular surface of the distal infraspinatus tendon involving greater than 50% thickness of the tendon with a full-thickness component more anteriorly. Mild supraspinatus muscle atrophy. Moderate amount of fluid in the joint and bursa. Reviewed, Interpreted and Dictated by He Saxena III, MD Transcribed by Veronica Sow Authenticated and . [facility]
== END ==
LOC: RAD 10:09
PROVIDERS: PCP Emergency Medicine; Visit Provider Orthopaedic Surgery
DX: S46.011A Strain of muscle(s) and tendon(s) of the rotator cuff of right shoulder, initial encounter (principal); M25.511 Pain in right shoulder
CPT/HCPCS: 73221

== ENCOUNTER → 2022-08-25 12:10 | Outpatient (CLI) | payer MEDICARE, SELFPAY | PROVIDERS: PCP Student in an Organized Health Care Education/Training Program; Visit Provider Student in an Organized Health Care Education/Training Program | DX: R68.89 Other general symptoms and signs (principal); U07.1 COVID-19 | CPT/HCPCS: C9803; U0003; U0005 ==

== ENCOUNTER 2022-10-15 09:34 | Emergency (ER) | payer MEDICARE, SELFPAY ==
[2022-10-15 09:50] VITALS: BP 144/78; PULSE 91; RESP 18; TEMP 36.9; O2SAT 98; BMI 30.5
--- NOTE | 2022-10-15 10:17 | EXP.UTC ---
Discharge Plan Disposition Patient Disposition: Home, Self-Care Condition: Good Prescriptions Prescriptions: New cephalexin 500 mg capsule 500 mg PO QID 7 Days Qty: 28 0RF methylprednisolone [Medrol (Trav)] 4 mg tablets,dose pack See Rx Instructions .Route .COMPLEX 6 Days Qty: 21 0RF Rx Instructions: taper pack; hydroxyzine pamoate [Vistaril] 25 mg capsule 25 mg PO TID PRN (Reason: itching) Qty: 12 0RF No Action albuterol sulfate 90 mcg/actuation HFA aerosol inhaler 2 inh IH QID PRN (Reason: shortness of breath or wheezing) 90 Days Qty: 8.5 2RF bisoprolol fumarate 5 mg tablet 5 mg PO QDAY Qty: 30 5RF clopidogrel [Plavix] 75 mg tablet 75 mg PO DAILY Qty: 90 3RF valsartan-hydrochlorothiazide [Diovan HCT] 160-25 mg tablet 1 tab PO DAILY Qty: 90 3RF fluticasone propionate [Flonase Allergy Relief] 50 mcg/actuation spray,suspension 2 spray intranasal DAILY 90 Days Qty: 16 3RF Rx Instructions: administer into each nostril azelastine 205.5 mcg (0.15 %) spray,non-aerosol 2 spray intranasal HS 90 Days Qty: 30 3RF Rx Instructions: administer into each nostril lysine 500 mg tablet 500 mg PO DAILY Qty: 30 0RF benzonatate 100 mg capsule 100 mg PO BID PRN (Reason: cough) Qty: 20 0RF methylprednisolone 4 mg tablets,dose pack See Rx Instructions PO PER PKG DIR Qty: 21 0RF Rx Instructions: PO PER PKG DIR doxycycline hyclate 100 mg tablet 100 mg PO BID 5 Days Qty: 10 0RF aspirin 81 mg tablet,delayed release (DR/EC) 81 mg PO DAILY Qty: 90 3RF atorvastatin 10 mg tablet See Rx Instructions .ROUTE .COMPLEX Qty: 90 3RF Dose Instruction: TAKE ONE TABLET BY MOUTH AT BEDTIME FOR CHOLESTEROL Rx Instructions: TAKE ONE TABLET BY MOUTH AT BEDTIME FOR CHOLESTEROL fluticasone propion-salmeterol [Advair Diskus] 250-50 mcg/dose blister with device 1 inh inhalation BID 90 Days Qty: 180 3RF hydrocodone-acetaminophen 5-325 mg tablet 1 tab PO DAILY PRN (Reason: pain) Qty: 7 0RF ondansetron 4 mg tablet,disintegrating 4 mg PO DAILY Qty: 30 0RF Referrals Follow up/Referrals: Alex Yeh MD [Primary Care Provider] - See instructions Activity Restrictions/Add. Instructions Additional Instructions/Restrictions: Vistaril (Hydroxyzine) For itching Oatmeal bathes may help to soothe the skin and help with itching DO NOT SCRATCH Topical lotions and creams like Aveeno, Aquaphor may help to sooth skin where you have it irritated from itching Start oral steriods (Medrol Dose Pack) tomorrow Follow up with your Family Doctor if no improvement or any worsening of sympotms Clinical Impressions Clinical Impression: Rash and nonspecific skin eruption Instructions Patient Instructions: DI for Rash, Hydroxyzine, Methylprednisolone Discharge ED Provider: Marielle Miramontes [facility] General Stated complaint: Rash on arms and abd spreading Mode of Arrival: Ambulatory Source of Information: Patient Limitations: No Limitations Time Seen by Provider: 10/15/22 10:18 Description of Symptoms (Recalled from Triage Doc. by RN): PATIENT C/O RASH TO ABDOMEN, ARMS AND GROIN X 2 DAYS. SHE STATES SHE THINKS IT MAY BE A REACTION TO BLEACH HEENT Symptoms (Recalled from RN notes): No Resp Symptoms (Recalled from RN notes): No Skin Symptoms (Recalled from RN notes): Yes MS Symptoms (Recalled from RN notes): No Functional Status (Recalled from RN notes): WNL History of Present Illness Provider Complaint: Patient states that she recently purchased a new bleach that she hasnt used before and thinks she may have had a reaction to it States that she has had a rash for about a week and has been taking OTC Benadryl and it did help some with the itching but the rash is starting is spreading States that she has itchy rash on her bilateral hands and wrist, abdomen and buttock area where she had washed her underwear in it and in her groin area States rhoad
[2022-10-15 11:12] VITALS: BP 144/78; PULSE 91; RESP 18; TEMP 36.9; O2SAT 98
== END 2022-10-15 11:26 | disposition home or self-care (01) ==
PROVIDERS: Emergency Provider Nurse Practitioner; PCP Emergency Medicine
DX: R21 Rash and other nonspecific skin eruption (principal)
CPT/HCPCS: 96372; 99212; 99213; G0463

== ENCOUNTER 2022-11-07 00:50 | Emergency (ER) | payer MEDICARE, SELFPAY ==
[2022-11-07 00:51] VITALS: BP 195/98; PULSE 115; RESP 16; TEMP 36.8; O2SAT 100; BMI 29.2
[2022-11-07 01:00] VITALS: BP 150/77; PULSE 103; O2SAT 99
[2022-11-07 01:30] VITALS: BP 161/74; PULSE 98; O2SAT 97
[2022-11-07 01:37] LABS: Chloride 108 mmol/L (98-107); Potassium 3.7 mmoL/L (3.5-5.1); Sodium 141 mmol/L (136-145)
[2022-11-07 01:40] LABS: Alanine Aminotransferase 22 U/L (12-78); Albumin Level 4.2 g/dl (3.5-5.0); Albumin/Globulin Ratio 1.6 (1.1-1.8); Alkaline Phosphatase 111 U/L (38-126); Anion Gap 9.7 mEq/L (5-15); Aspartate Amino Transferase 40 U/L (14-36); Basophils # 0.1 K/mm3 (0-0.2); Basophils % 1.1 % (0.1-2.0); Bilirubin,Total 0.5 mg/dl (0.2-1.3); Blood Urea Nitrogen 23 mg/dl (7-17); Carbon Dioxide 27 mmol/L (22.0-30.0); Creatinine Clearance Estimated 55 mL/min (50-200); Eosinophils # 1.1 K/mm3 (0.0-0.4); Eosinophils % 14.9 % (0.1-12.0); Estimated Glomerular Filt Rate 49 ml/min (>60); GFR (African American) 60 ML/MIN (>60); Globulin 2.6 g/dL (1.3-3.2); Hematocrit 41.5 % (37.0-47.0); Lymphocytes # 0.8 K/mm3 (0.7-4.5); Lymphocytes % 11.9 % (10-50); Mean Corpuscular HGB Conc 31.3 g/dL (31.8-35.4); Mean Corpuscular Hemoglobin 29.9 pg (27.0-31.2); Mean Corpuscular Volume 95.7 fl (81-99); Mean Platelet Volume 8.9 fl (7.4-10.4); Monocytes # 0.7 K/mm3 (0.1-1.0); Monocytes % 10.4 % (1.7-9.3); Neutrophils # 4.3 K/mm3 (1.8-7.8); Neutrophils % 61.8 % (37.0-80.0); Platelet Count 322 K/mm3 (142-424); Red Blood Count 4.34 M/mm3 (4.20-5.40); Red Cell Distribution Width 18.7 % (11.5-17.5); Total Protein,Serum 6.8 g/dl (6.3-8.2)
[2022-11-07 01:41] LABS: Calcium 8.8 mg/dl (8.4-10.2); Glucose 139 mg/dl (74-100)
--- NOTE | 2022-11-07 01:42 | PC.NURSE ---
Rounded on patient. Patient helped with needs voiced at this time.
[2022-11-07 01:46] LABS: C-Reactive Protein 8.9 mg/L (0-4)
[2022-11-07 01:59] LABS: Procalcitonin 0.049 ng/mL (0.0-2.0)
[2022-11-07 02:00] VITALS: BP 139/68; PULSE 99; O2SAT 97
[2022-11-07 02:20] LABS: Erythrocyte Sedimentation Rate 9 mm/hr (0-30)
[2022-11-07 02:30] VITALS: BP 122/61; PULSE 93; O2SAT 97
--- NOTE | 2022-11-07 02:44 | HMH.EDALLER ---
Discharge Plan Disposition Patient Disposition: Home, Self-Care Chief Complaint: Allergic Reaction Prescriptions Prescriptions: No Action albuterol sulfate 90 mcg/actuation HFA aerosol inhaler 2 inh IH QID PRN (Reason: shortness of breath or wheezing) 90 Days Qty: 8.5 2RF bisoprolol fumarate 5 mg tablet 5 mg PO QDAY Qty: 30 5RF valsartan-hydrochlorothiazide [Diovan HCT] 160-25 mg tablet 1 tab PO DAILY Qty: 90 3RF fluticasone propionate [Flonase Allergy Relief] 50 mcg/actuation spray,suspension 2 spray intranasal DAILY 90 Days Qty: 16 3RF Rx Instructions: administer into each nostril azelastine 205.5 mcg (0.15 %) spray,non-aerosol 2 spray intranasal HS 90 Days Qty: 30 3RF Rx Instructions: administer into each nostril lysine 500 mg tablet 500 mg PO DAILY Qty: 30 0RF benzonatate 100 mg capsule 100 mg PO BID PRN (Reason: cough) Qty: 20 0RF doxycycline hyclate 100 mg tablet 100 mg PO BID 5 Days Qty: 10 0RF aspirin 81 mg tablet,delayed release (DR/EC) 81 mg PO DAILY Qty: 90 3RF atorvastatin 10 mg tablet See Rx Instructions .ROUTE .COMPLEX Qty: 90 3RF Dose Instruction: TAKE ONE TABLET BY MOUTH AT BEDTIME FOR CHOLESTEROL Rx Instructions: TAKE ONE TABLET BY MOUTH AT BEDTIME FOR CHOLESTEROL fluticasone propion-salmeterol [Advair Diskus] 250-50 mcg/dose blister with device 1 inh inhalation BID 90 Days Qty: 180 3RF clopidogrel 75 mg tablet See Rx Instructions .ROUTE .COMPLEX Qty: 90 2RF Dose Instruction: TAKE ONE TABLET BY MOUTH EVERY DAY Rx Instructions: TAKE ONE TABLET BY MOUTH EVERY DAY hydroxyzine pamoate [Vistaril] 25 mg capsule 25 mg PO TID PRN (Reason: itching) Qty: 12 0RF hydrocodone-acetaminophen 5-325 mg tablet 1 tab PO DAILY PRN (Reason: pain) Qty: 7 0RF Referrals Follow up/Referrals: Alex Yeh MD [Primary Care Provider] - See instructions Clinical Impressions Clinical Impression: Dermatitis, Allergic reaction Instructions Patient Instructions: DI for General Allergic Reactions Discharge ED Provider: Ruba (ED)Alex Allergic React/Insect Bite HPI General Chief complaint: Allergic Reaction Stated complaint: Rash Time Seen by Provider: 11/07/22 03:09 Mode of Arrival - ED Triage: Ambulatory Source of Information: Patient and Medical Record Limitations: No Limitations History of Present Illness HPI narrative: pt with rash and itching to trunk which has been ongoing since about 2 months ago - pt with no resp sx and no mm lesions - some resp with steroids and has appt with dr mills this am - complaint: other (diffuse rash ) Onset (ago): day(s) Exposure: unknown Symptoms: rash and itching Treatment prior to arrival: benadryl and steroids Allergies Allergy/AdvReac Type Severity Reaction Status Date / Time nebivolol [From Bystolic] Allergy Intermediate dizz Verified 08/25/22 12:56 aspirin Allergy Mild Bothers Verified 08/25/22 12:56 stomach diltiazem AdvReac Mild itching Verified 08/25/22 12:56 Severity: moderate Related Data Previous Rx's Medication Instructions Recorded aspirin 81 mg tablet,delayed 81 mg PO DAILY #90 tabs 10/05/21 release valsartan 160 1 tab PO DAILY #90 tabs 02/20/22 mg-hydrochlorothiazide 25 mg tablet (Diovan HCT) albuterol sulfate 90 mcg/actuation 2 inh inhalation QID PRN shortness 04/12/22 aerosol inhaler of breath or wheezing 90 days #8.5 grams atorvastatin 10 mg tablet See Rx Instructions .Route 04/24/22 .COMPLEX #90 ea azelastine 205.5 mcg (0.15 %) 2 spray intranasal HS 90 days #30 05/31/22 nasal spray mL fluticasone propionate 50 2 spray intranasal DAILY 90 days 05/31/22 mcg/actuation nasal #16 grams spray,suspension (Flonase Allergy Relief) fluticasone 250 mcg-salmeterol 50 1 inh inhalation BID 90 days #180 06/01/22 mcg/dose blistr powdr for ea inhalation (Advair Diskus) bisoprolol fumarate 5 mg tablet 5 mg PO QDAY
--- NOTE | 2022-11-07 02:56 | PC.NURSE ---
in room talking to patient.
[2022-11-07 03:19] VITALS: BP 146/76; PULSE 99; RESP 16; TEMP 36.6; O2SAT 97
== END 2022-11-07 03:36 | disposition home or self-care (01) ==
PROVIDERS: Emergency Provider Emergency Medicine; PCP Emergency Medicine
DX: L50.0 Allergic urticaria (principal); L30.9 Dermatitis, unspecified; J45.909 Unspecified asthma, uncomplicated; J44.9 Chronic obstructive pulmonary disease, unspecified; I10 Essential (primary) hypertension; K21.9 Gastro-esophageal reflux disease without esophagitis; E55.9 Vitamin D deficiency, unspecified; D51.9 Vitamin B12 deficiency anemia, unspecified; F17.210 Nicotine dependence, cigarettes, uncomplicated; Z90.49 Acquired absence of other specified parts of digestive tract
CPT/HCPCS: 80053; 84145; 85025; 85651; 86140; 96374; 96375; 99284; 99285

== ENCOUNTER → 2023-06-08 23:21 | Outpatient (CLI) | payer MEDICARE, SELFPAY | PROVIDERS: PCP Emergency Medicine; Visit Provider Emergency Medicine | DX: N39.0 Urinary tract infection, site not specified (principal) | CPT/HCPCS: 87086 ==

== ENCOUNTER → 2023-06-12 23:28 | Outpatient (CLI) | payer MEDICARE, SELFPAY | PROVIDERS: PCP Emergency Medicine; Visit Provider Emergency Medicine | DX: R68.89 Other general symptoms and signs (principal); B96.29 Other Escherichia coli [E. coli] as the cause of diseases classified elsewhere | CPT/HCPCS: 87086 ==

== ENCOUNTER → 2023-06-27 13:52 | Outpatient (CLI) | payer MEDICARE, SELFPAY ==
--- NOTE | 2023-06-27 13:52 | US_ITS ---
PROCEDURE: US TRANSVAGINAL CLINICAL INDICATION: pelvic pain COMPARISON: No exams were available for comparison FINDINGS: Transvaginal sonographic images of the pelvis were obtained. UTERUS: 5.0 cm x 3.3 cmx 2.2 cm with a combined endometrial thickness of 4.7mm. Uterus is retroverted and retroflexed There is a small amount of fluid in the endometrial cavity. Questionable significance. The endometrium itself is extremely thin. LEFT OVARY: 4.6 cm x2.0 cm x2.8cm with a volume of 13ml. There is a multilocular cyst in the left ovary. It has hypoechoic fluid. The largest simple cyst measures 3.1 cm by 2.5 cm x 3.7 cm. There is a 2nd small simple cyst measuring 1.1 cm x 1.4 cm. There are no papillary lesions or excrescences. There are no solid components. The the wall between the cysts measures 3.0 mm. RIGHT OVARY: 3.2 cmx 2.9 cmx1.8 cm with a volume of 8.7ml. The right ovary has a simple cyst measuring 2.4 cm x 1.6 cm x 2.6 cm. Both ovaries are seen and appear to have simple cysts. Doppler flow to both ovaries are seen. There is no fluid in the cul-de-sac. IMPRESSION: 1. Retroverted retroflexed uterus small in size. 2. There is fluid within the endometrium of questionable significance and the endometrium itself is extremely thin. 3. The left ovary is slightly enlarged and has a multilocular simple cyst. It measures 3.7 cm. There is a thickened wall between these 2 simple cysts. 4. The right ovary has a simple cyst measuring 2.6 cm. 5. Suggest repeat scan in 6-8 weeks to monitor growth of the cysts and continue to ascertain their benign nature. Dictated by: Frankie Arita MD 06/27/2023 18:16 Frankie Arita MD in OV 06/27/2023 18:16
== END ==
LOC: RAD 13:52
PROVIDERS: PCP Emergency Medicine; Visit Provider Emergency Medicine
DX: R10.2 Pelvic and perineal pain (principal)
CPT/HCPCS: 76830

== ENCOUNTER → 2023-06-29 14:59 | Outpatient (CLI) | payer MEDICARE, SELFPAY ==
[2023-07-01 08:16] LABS: Cancer Antigen (CA) 125 12.3 U/mL (0.0-38.1)
== END ==
PROVIDERS: PCP Emergency Medicine; Visit Provider Nurse Practitioner Obstetrics & Gynecology
DX: Z12.73 Encounter for screening for malignant neoplasm of ovary (principal); R10.2 Pelvic and perineal pain
CPT/HCPCS: 86316

== ENCOUNTER → 2023-07-12 10:25 | Outpatient (CLI) | payer MEDICARE, SELFPAY ==
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
== END ==
LOC: RAD 10:25
PROVIDERS: PCP Emergency Medicine; Visit Provider Emergency Medicine
DX: M54.9 Dorsalgia, unspecified (principal)
CPT/HCPCS: 72148; 76376

== ENCOUNTER → 2023-08-15 12:55 | Outpatient (POV) | payer MEDICARE, SELFPAY ==
--- NOTE | 2023-08-15 13:17 | EXP.PAIN.OV ---
HPI Data of Consult Patient: new to practice Consult date: 08/15/23 Requesting Physician: Roseann Acosta APRN Primary Care Provider: Alex Yeh MD Consult Narrative Reason for consult: Low back pain, hip pain, leg pain History of present illness: Ms. Delgado is a 68 year old female who presents today as a new patient. She is a referral from Dr. Carrero's office. Today she rates her pain an 8 out of 10. Patient states her pain is all in her low back and bilateral hips with some pain into her legs and her left knee. Patient states this has been going on for years unrelated to any specific trauma or injury. Patient states that back over 12 years ago she did go to a specialist in pain management who did do injection therapy including epidurals. She states that these did help however over time became less effective. Patient states that then she did end up moving back to [place] and where she does not like going to the doctor tried conservative treatment such as oral medications like Tylenol and ibuprofen along with heat and ice and topicals with minimal relief. Patient states that she has not had physical therapy however has done at home exercising and stretching for longer than 6 weeks with minimal improvement. Patient does describe her pain as a sharp achy sensation that is worse with increased activity such as standing for long period of time or walking or prolonged sitting. 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 Patient does state that the pain does make it difficult to perform activities of daily living such as cooking and cleaning. Patient does state that her previous back injections did cause of a lot of pain towards the end and so she is hesitant regarding starting injections again.Patient has been prescribed Tylenol 3 and diazepam 5 mg twice a day from her PCP. Her Cristobal has been reviewed and is appropriate. CC: Roseann Acosta APRN [facility] Disclaimer: The information contained in this section may have been updated after the patient was seen, as this information can be updated by other users. 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, w/o chronic kidney disease Moderate persistent asthma Nodule of left lung Non-seasonal allergic rhinitis Pulmonary emphysema Screening for lung cancer Smoking greater than 30 pack years SOB (shortness of breath) Tobacco abuse counseling Vitamin B12 deficiency Vitamin D deficiency Surgical History History of cardiac cath History of coronary artery stent placement Family History (Reviewed 06/08/23 @ 16: by Gemini Gonzalez CMA) Other No significant family history Social History Smoking Status: Current every day smoker tobacco type: cigarettes packs per day: 1 alcohol intake: never substance use type: denies use current occupational status: retired Travel in the last 8 weeks: None housing: house caffeine: Yes Review of Systems Review of Systems Review of systems:: pertinent systems reviewed and negative unless documented below Review of systems (narrative): Review of Systems: General: No recent weight changes, no fever, no sleep disturbances Respiratory: No cough, no shortness of air, no recurring pulmonary infections Cardiovascular/peripheral vascular: No chest pain, no palpitations, no edema, no shortness of breath Gastrointestinal: No new onset incontinence, normal bowel movements reported Genitourinary: No new
[2023-08-15 13:34] VITALS: BP 150/81; PULSE 105; RESP 18; O2SAT 95; BMI 28.3
== END ==
PROVIDERS: PCP Emergency Medicine; Visit Provider Nurse Practitioner Family
DX: M51.16 Intervertebral disc disorders with radiculopathy, lumbar region (principal); M47.26 Other spondylosis with radiculopathy, lumbar region; M25.551 Pain in right hip; M25.552 Pain in left hip; M46.1 Sacroiliitis, not elsewhere classified
CPT/HCPCS: 99202; G0463

== ENCOUNTER 2024-03-31 12:28 | Emergency (ER) | payer MEDICARE, SELFPAY ==
[2024-03-31 12:40] VITALS: BP 151/79; PULSE 85; RESP 18; TEMP 36.9; O2SAT 96; BMI 30.4
--- NOTE | 2024-03-31 13:10 | ED_ITS ---
Discharge Plan Disposition Patient Disposition: Home, Self-Care Condition: Good Prescriptions Prescriptions: New amoxicillin 875 mg tablet 875 mg PO Q12H Qty: 20 0RF benzonatate 100 mg capsule 100 mg PO TIDP PRN (Reason: Cough) Qty: 30 0RF methylprednisolone 4 mg Tablets,Dose Pack 4 mg PO DIRECTED 6 Days Qty: 21 0RF Rx Instructions: Take 1 pack as directed for 6 days No Action valsartan-hydrochlorothiazide 160-25 mg tablet 1 tab PO DAILY Referrals Follow up/Referrals: Provider,Referral, MD [Primary Care Provider] - See instructions Activity Restrictions/Add. Instructions Additional Instructions/Restrictions: Drink plenty of fluids. Take tylenol or ibuprofen for pain or fever. Take the medications as directed. Follow up with your regular doctor. GO TO THE ER FOR ANY WORSENING SYMPTOMS Clinical Impressions Clinical Impression: Sinusitis, Otitis media Instructions Patient Instructions: Sinusitis, DI for Sinusitis Print Language Print Language: Bulgarian Discharge ED Provider: Shorty Willingham [facility] General Stated complaint: congestion, ear pain Mode of Arrival: Ambulatory Source of Information: Patient Limitations: No Limitations Time Seen by Provider: 03/31/24 13:05 Description of Symptoms (Recalled from Triage Doc. by RN): PATIENT C/O PROBLEMS HEARING AND COUGH X 2 DAYS HEENT Symptoms (Recalled from RN notes): Yes Resp Symptoms (Recalled from RN notes): Yes Skin Symptoms (Recalled from RN notes): No MS Symptoms (Recalled from RN notes): No Functional Status (Recalled from RN notes): WNL History of Present Illness Provider Complaint: She states that for the past 3 days she has had sinus congestion, sore throat, cough and ear pain. Related Data Home Medications ?Medication ?Instructions ?Recorded ?Confirmed valsartan 160 1 tab PO DAILY 03/31/24 03/31/24 mg-hydrochlorothiazide 25 mg tablet Previous Rx's ?Medication ?Instructions ?Recorded amoxicillin 875 mg tablet 875 mg PO Q12H #20 tabs 03/31/24 benzonatate 100 mg capsule 100 mg PO TIDP PRN Cough #30 caps 03/31/24 methylprednisolone 4 mg tablets in 4 mg PO DIRECTED 6 days #21 tabs 03/31/24 a dose pack Allergies Allergy/AdvReac Type Severity Reaction Status Date / Time nebivolol [From Bystolic] Allergy Intermediate dizz Verified 06/12/23 14:32 aspirin Allergy Mild Bothers Verified 06/12/23 14:32 stomach diltiazem AdvReac Mild itching Verified 06/12/23 14:32 Worker's Comp Is this a Worker's Comp case?: No [facility] Disclaimer: The information contained in this section may have been updated after the patient was seen, as this information can be updated by other users. 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, w/o chronic kidney disease Moderate persistent asthma Nodule of left lung Non-seasonal allergic rhinitis Pulmonary emphysema Screening for lung cancer Smoking greater than 30 pack years SOB (shortness of breath) Tobacco abuse counseling Vitamin B12 deficiency Vitamin D deficiency Surgical History History of cardiac cath History of coronary artery stent placement Family History Other No significant family history Social History (Updated 08/15/23 @ 13:56 by Aniyah Read RN) Smoking Status: Current every day smoker tobacco type: cigarettes packs per day: 1 alcohol intake: never substance use type: denies use current occupational status: employed Travel in the last 8 weeks: None housing: house caffeine: Yes ROS Obtained: Yes All systems reviewed & no additional complaints except as documented Constitutional Constitutional: Reports chills and Reports fever(s) Eyes Eyes: Denies eye discharge ENT Ears, Nose, Mouth, and Throat: Reports as per HPI Cardiovascular Cardiovascular: Denies chest pain Respiratory Respiratory: Denies chest congestion and Reports cough Gastrointestinal Gastrointestingal: Reports nausea; Denies abdominal pain, constipation, cramping, diarrhea or vomiting Musculoskeletal Musculoskeletal: Denies arthralgias Integumentary/Breasts Skin/Breast: Denies rash Neurologic Neurologic: Denies paresthesias Physical Exam General General appearance: alert and in no apparent distress Eye Eye exam: Present normal appearance, PERRL and EOMI ENT ENT exam: Present mucous membranes moist and normal external ear exam Expanded ENT Exam External ear exam: Present normal external inspection TM/Canal exam: Bilateral TM: erythema and bulging Nose exam: Absent sinus tenderness Nasal speculum exam: Bilateral: normal Mouth exam: Present normal external inspection; Absent drooling Teeth exam: Present normal inspection Throat exam: Present tonsillar erythema and tonsillomegaly Neck Neck exam: Present normal inspection, full ROM and trachea midline; Absent tenderness, lymphadenopathy or thyromegaly Chest Chest inspection: Present normal inspection and symmetric chest wall rise; Ab sent tenderness or rash Respiratory Respiratory exam: Present normal lung sounds bilaterally; Absent respiratory distress, wheezes, stridor or accessory muscle use Cardiovascular Cardiovascular exam: Present regular rate, normal rhythm and normal heart sounds Abdominal Exam Abdominal exam: Present soft; Absent distention, tenderness, guarding, rebound or rigidity Extremities Exam Extremities exam: Present normal inspection, full ROM and normal capillary refill; Absent tenderness or calf tenderness Back Exam Back exam: Present normal inspection and full ROM; Absent tenderness Neurological Exam Neurological exam: Present alert and oriented X3 Psychiatric Psychiatric exam: Present normal affect and normal mood Skin Skin exam: Present warm, dry, intact and normal color Lymphatic Lymphatic Findings: no adenopathy Medical Decision Making Medical Records Medical records reviewed: No I reviewed the patient's medical records. Cristobal Inquiry Pt receiving controlled substance: No Vital Signs: 03/31/24 12:40 Temperature 98.4 F Temperature Source Oral Pulse Rate [Right Brachial] 85 Respiratory Rate 18 Blood Pressure [Right Arm] 151/79 H Blood Pressure Mean [Right Arm] 103 Blood Pressure Source [Right Arm] Automatic Cuff Blood Pressure Position [Right Arm] Sitting 02 Sat by Pulse Oximetry 96 Oxygen Delivery Method Room Air Lab Data Lab results reviewed: Yes I reviewed the patient's lab results.
[2024-03-31 13:35] VITALS: BP 151/79; PULSE 85; RESP 18; TEMP 36.9; O2SAT 96
== END 2024-03-31 13:45 | disposition home or self-care (01) ==
PROVIDERS: Emergency Provider Nurse Practitioner Family
DX: J01.90 Acute sinusitis, unspecified (principal); H66.93 Otitis media, unspecified, bilateral
CPT/HCPCS: 99212; 99214; G0463

== ENCOUNTER 2024-04-21 15:18 | Emergency (ER) | payer MEDICARE, SELFPAY ==
[2024-04-21 16:46] VITALS: BP 155/54; RESP 18; TEMP 36.7; O2SAT 97; BMI 29.5
--- NOTE | 2024-04-21 17:02 | EXP.UTC ---
Discharge Plan Disposition Patient Disposition: Home, Self-Care Condition: Good Prescriptions Prescriptions: New amoxicillin-pot clavulanate 875-125 mg Tablet 1 tab PO Q12H Qty: 20 0RF fluticasone propionate [Flonase Allergy Relief] 50 mcg/actuation spray,suspension 2 spray intranasal DAILY Qty: 16 0RF Rx Instructions: administer into each nostril daily No Action valsartan-hydrochlorothiazide 160-25 mg tablet 1 tab PO DAILY amoxicillin 875 mg tablet 875 mg PO Q12H Qty: 20 0RF benzonatate 100 mg capsule 100 mg PO TIDP PRN (Reason: Cough) Qty: 30 0RF methylprednisolone 4 mg Tablets,Dose Pack 4 mg PO DIRECTED 6 Days Qty: 21 0RF Rx Instructions: Take 1 pack as directed for 6 days Referrals Follow up/Referrals: Provider,Referral, MD [Primary Care Provider] - See instructions Veronica Villanueva APRN [Nurse Practitioner] - See instructions Activity Restrictions/Add. Instructions Additional Instructions/Restrictions: *Monitor Temp, Over the counter Motrin or Tylenol as directed/as needed Tylenol every 4 hours and Motrin every 6 hours (as long as your family doctor has told you that you can take it) for fever or pain. and straight to ER if unable to lower temp less than 101.0 after medication given Take medication as prescribed *Sleep elevated *Humidifier/Vaporizer *Flonase 2 sprays in each nostril daily but be aware that it may take 2-3 days before you notice improvement Follow up with ENT or Family Doctor if no improvement Follow up IMMEDIATELY for new or worsening symptoms or no Noticeable improvement over the next 48-72 hours. 911 for difficulty breathing or swallowing Clinical Impressions Clinical Impression: Otitis media Instructions Patient Instructions: Middle Ear Infection, Amoxicillin and Clavulanic Acid, Fluticasone Nasal [place] Print Language Print Language: Swedish Discharge ED Provider: Marielle Miramontes [facility] General Stated complaint: bilateral ear pain Mode of Arrival: Ambulatory Source of Information: Patient Limitations: No Limitations Time Seen by Provider: 04/21/24 17:02 Description of Symptoms (Recalled from Triage Doc. by RN): Complaint of bilateral ears being stopped up. HEENT Symptoms (Recalled from RN notes): Yes Resp Symptoms (Recalled from RN notes): No Skin Symptoms (Recalled from RN notes): No MS Symptoms (Recalled from RN notes): No Functional Status (Recalled from RN notes): wnl History of Present Illness Provider Complaint: Patient states that she is having pain/pressure in her left ear and feels like it is stopped up States that her right ear feels stopped up too but not as bad as the left so she came in Related Data Home Medications ?Medication ?Instructions ?Recorded ?Confirmed valsartan 160 1 tab PO DAILY 03/31/24 03/31/24 mg-hydrochlorothiazide 25 mg tablet Previous Rx's ?Medication ?Instructions ?Recorded amoxicillin 875 mg tablet 875 mg PO Q12H #20 tabs 03/31/24 benzonatate 100 mg capsule 100 mg PO TIDP PRN Cough #30 caps 03/31/24 methylprednisolone 4 mg tablets in 4 mg PO DIRECTED 6 days #21 tabs 03/31/24 a dose pack amoxicillin 875 mg-potassium 1 tab PO Q12H #20 tabs 04/21/24 clavulanate 125 mg tablet fluticasone propionate 50 2 spray intranasal DAILY #16 grams 04/21/24 mcg/actuation nasal spray,suspension (Flonase Allergy Relief) Allergies Allergy/AdvReac Type Severity Reaction Status Date / Time nebivolol [From [facility]] Allergy Intermediate dizz Verified 06/12/23 14:32 aspirin Allergy Mild Bothers Verified 06/12/23 14:32 stomach diltiazem AdvReac Mild itching Verified 06/12/23 14:32 Worker's Comp Is this a Worker's Comp case?: No [facility] Disclaimer: The information contained in this section may have been updated after the patient was seen, as this information can be updated by other users. Medical History Asthma-
[2024-04-21 17:34] VITALS: BP 155/54; PULSE 78; RESP 18; TEMP 36.7; O2SAT 97
== END 2024-04-21 17:35 | disposition home or self-care (01) ==
PROVIDERS: Emergency Provider Nurse Practitioner
DX: H66.93 Otitis media, unspecified, bilateral (principal); H92.03 Otalgia, bilateral
CPT/HCPCS: 99212; 99214; G0463

== ENCOUNTER 2024-06-12 13:20 | Outpatient (POV) | payer MEDICARE, SELFPAY | END 2024-06-12 23:59 | disposition home or self-care (01) | LOC: SC 13:20 | PROVIDERS: PCP Internal Medicine; Visit Provider Specialist/Technologist | DX: Z00.00 Encounter for general adult medical examination without abnormal findings (principal) ==

== ENCOUNTER 2024-06-30 08:49 | Outpatient (CLI) | payer MEDICARE, SELFPAY ==
[2024-06-30 09:44] LABS: Blood Urea Nitrogen 24 mg/dl (7-17); Estimated Glomerular Filt Rate 49 ml/min (>60); GFR (African American) 59 ML/MIN (>60)
== END 2024-06-30 23:59 | disposition home or self-care (01) ==
LOC: LAB.DROPOF 07-02 08:50
PROVIDERS: Visit Provider Nurse Practitioner
DX: H91.22 Sudden idiopathic hearing loss, left ear (principal)
CPT/HCPCS: 36415; 82565; 84520

== ENCOUNTER 2024-06-30 09:23 | Outpatient (CLI) | payer MEDICARE, SELFPAY ==
--- NOTE | 2024-06-30 09:23 | MR_ITS ---
FINAL REPORT CLINICAL HISTORY: HEARING LOSS OUT OF LEFT EAR HEADACHE COMPARISON: None FINDINGS: Multiplanar MR imaging of the brain was performed without contrast. Targeted views of the internal auditory canals were obtained in this patient with a history of hearing loss. The lack of intravenous contrast decreases sensitivity for evaluation of the internal auditory canals. There is opacification of multiple right mastoid air cells. There are retention cysts or polyps present in the maxillary sinuses bilaterally. There is no evidence of intracranial hemorrhage or mass. The ventricular size is normal. There is no evidence of shift of the midline structures. No abnormal extra-axial fluid collection is identified. The posterior fossa and brainstem have an unremarkable appearance. No area of abnormal restricted diffusion is identified. Normal major vessel vascular flow voids are seen. IMPRESSION: Unremarkable brain with no acute intracranial abnormality. Opacification of multiple right mastoid air cells, and bilateral maxillary retention cysts or polyps. Authenticated and ERN
== END 2024-06-30 23:59 | disposition home or self-care (01) ==
LOC: RAD 09:23
PROVIDERS: PCP Nurse Practitioner; Visit Provider Nurse Practitioner
DX: H91.22 Sudden idiopathic hearing loss, left ear (principal)
CPT/HCPCS: 36415; 70551; 82565; 84520

== ENCOUNTER 2025-03-02 16:01 | Outpatient (CLI) | payer MEDICARE, SELFPAY ==
[2025-03-02 17:12] LABS: Hematocrit 33.3 % (37.0-47.0); Hemoglobin 11.0 g/dL (12.2-16.2); Immature Granulocytes % 0.6 %; Mean Corpuscular HGB Conc 33.0 g/dL (31.8-35.4); Mean Corpuscular Hemoglobin 34.5 pg (27.0-31.2); Mean Corpuscular Volume 104.4 fl (81-99); Nucleated Red Blood Cells % 0 %; Platelet Count 205 K/mm3 (142-424); Red Blood Count 3.19 M/mm3 (4.20-5.40); Red Cell Distribution Width-SD 67.7 fL; White Blood Count 5.1 K/mm3 (4.8-10.8)
[2025-03-02 18:22] LABS: Alanine Aminotransferase 10 U/L (12-78); Albumin Level 4.1 g/dl (3.5-5.0); Albumin/Globulin Ratio 1.5 (1.1-1.8); Alkaline Phosphatase 131 U/L (38-126); Anion Gap 16.1 mEq/L (5-15); Aspartate Amino Transferase 31 U/L (14-36); Bilirubin,Total 0.6 mg/dl (0.2-1.3); Blood Urea Nitrogen 17 mg/dl (7-17); Calcium 8.4 mg/dl (8.4-10.2); Carbon Dioxide 28 mmol/L (22.0-30.0); Chloride 105 mmol/L (98-107); Cholesterol 132 mg/dl (140-200); Creatinine,Serum 1.00 mg/dl (0.52-1.04); Estimated Glomerular Filt Rate 55 ml/min (>60); GFR (African American) 66 ML/MIN (>60); Globulin 2.7 g/dL (1.3-3.2); Glucose 75 mg/dl (74-100); HDL Cholesterol 19 mg/dl (40-60); Magnesium 1.8 mg/dl (1.6-2.3); Potassium 5.1 mmoL/L (3.5-5.1); Sodium 144 mmol/L (136-145); Total Protein,Serum 6.8 g/dl (6.3-8.2); Triglycerides 323 mg/dl (30-150)
[2025-03-02 18:47] LABS: 25-OH Vitamin D, Total < 12.8 ng/mL (30-100)
[2025-03-02 18:52] LABS: Thyroid Stimulating Hormone 1.83 uIU/mL (0.465-4.68)
[2025-03-02 19:13] LABS: Vitamin B12 < 159 pg/mL (239-931)
== END 2025-03-02 23:59 | disposition home or self-care (01) ==
LOC: LAB.DROPOF 03-03 10:07
PROVIDERS: PCP Nurse Practitioner Family; Visit Provider Nurse Practitioner Family
DX: E53.8 Deficiency of other specified B group vitamins (principal); E55.9 Vitamin D deficiency, unspecified; E78.5 Hyperlipidemia, unspecified; I10 Essential (primary) hypertension; Z82.0 Family history of epilepsy and other diseases of the nervous system
CPT/HCPCS: 80053; 80061; 81401; 82306; 82607; 83735; 84443; 85025

== ENCOUNTER 2025-04-09 08:49 | Outpatient (CLI) | payer MEDICARE, SELFPAY ==
[2025-04-09 17:19] LABS: Hematocrit 37.6 % (37.0-47.0); Hemoglobin 11.7 g/dL (12.2-16.2); Immature Granulocytes % 0.2 %; Mean Corpuscular HGB Conc 31.1 g/dL (31.8-35.4); Mean Corpuscular Hemoglobin 31.0 pg (27.0-31.2); Mean Corpuscular Volume 99.7 fl (81-99); Nucleated Red Blood Cells % 0 %; Platelet Count 187 K/mm3 (142-424); Red Blood Count 3.77 M/mm3 (4.20-5.40); Red Cell Distribution Width-SD 60.5 fL; White Blood Count 4.9 K/mm3 (4.8-10.8)
[2025-04-09 18:41] LABS: Ferritin 12.5 ng/ml (11.1-264)
[2025-04-09 18:58] LABS: Vitamin B12 830 pg/mL (239-931)
[2025-04-12 19:24] LABS: Intrinsic Factor Abs, Serum 1.2 AU/mL (0.0-1.1)
== END 2025-04-09 23:59 | disposition home or self-care (01) ==
LOC: LAB.DROPOF 04-14 08:50
PROVIDERS: PCP Nurse Practitioner Family; Visit Provider Nurse Practitioner Family
DX: D50.9 Iron deficiency anemia, unspecified (principal); E53.8 Deficiency of other specified B group vitamins
CPT/HCPCS: 82607; 82728; 85025; 86340

== ENCOUNTER 2025-04-28 14:52 | Outpatient (CLI) | payer MEDICARE, SELFPAY ==
[2025-04-28 17:00] LABS: Coronavirus 19, PCR Not Detected (NotDetected); Influenza A, PCR Not Detected (NotDetected); Influenza B, PCR Not Detected (NotDetected)
== END 2025-04-28 23:59 | disposition home or self-care (01) ==
LOC: LAB.DROPOF 04-30 09:52
PROVIDERS: PCP Nurse Practitioner Family; Visit Provider Nurse Practitioner Family
DX: J20.9 Acute bronchitis, unspecified (principal)
CPT/HCPCS: 87631